=== PATIENT | female | born 1935 | race Hispanic/Latino ===

== ENCOUNTER 2017-03-31 09:22 | Inpatient (IN) | payer MEDICARE, OTHER ==
[2017-03-31] MEDS ORDERED: Sodium Chloride 0.9% 1,000 ML IV ONE (09:45)
[2017-03-31] MEDS ORDERED: Albuterol-Ipratrop 3 mg / 0.5 (3 ml) UD IH STA (09:47)
--- NOTE | 2017-03-31 09:58 | ED PDOC ---
Arrival/HPI - General Chief Complaint: Abdominal Pain Time Seen by Provider: 03/31/17 09:42 Historian: Patient - History of Present Illness Narrative History of Present Illness (Text): 03/31/17 09:58 Leah Lazo is a 81 year old female, with a past medical history of hyperlipidemia, asthma, and hypothyroidism, presents to the emergency department complaining of fever and chills since yesterday. She also complains of nausea and 1 episode of vomiting, and notes of mild abdominal discomfort prior to vomiting, which has resolved. Patient had a temperature of 101F at home. Reports she had some mild difficulty breathing on her way to emergency department, but currently denies any shortness of breath. Denies headache, dizziness, chest pain, diarrhea, urinary symptoms, or any other complaints at this time. PMD:Dr. Spicer Time/Duration: Other (yesterday ) Symptom Onset: Gradual Symptom Course: Unchanged Severity Level: Mild Activities at Onset: Light Past Medical History - Provider Review Nursing Documentation Reviewed: Yes - Infectious Disease Hx of Infectious Diseases: None - Reproductive Menopause: Yes - Pulmonary Hx Asthma: Yes - Endocrine/Metabolic Hx Hypothyroidism: Yes - Psychiatric Hx Substance Use: No - Surgical History Hx Cataract Extraction: Yes (2012) Other/Comment: niki knee replacement - Anesthesia Hx Anesthesia: Yes Hx Anesthesia Reactions: No Hx Malignant Hyperthermia: No Family/Social History - Physician Review Nursing Documentation Reviewed: Yes Family/Social History: No Known Family HX Smoking Status: Former Smoker Hx Alcohol Use: Yes Frequency of alcohol use: Socially Hx Substance Use: No Allergies/Home Meds Allergies/Adverse Reactions: Allergies No Known Allergies Allergy (Verified 03/31/17 09:33) Home Medications: Home Meds Medication Instructions Recorded Confirmed Aspirin [Ecotrin] 81 mg PO DAILY 03/31/17 03/31/17 Calcium Carbonate [Oscal] 1 cap PO BID 03/31/17 03/31/17 Fluticasone/Salmeterol 250/50 1 puff INH BID 03/31/17 03/31/17 [Advair Diskus 250/50] Pravastatin Sodium [Pravachol] 40 mg PO HS 03/31/17 03/31/17 Thyroxine 100 mcg PO DAILY 03/31/17 03/31/17 Vit A/Vit C/Vit E/Zinc/Copper 1 each PO BID 03/31/17 03/31/17 [Preservision Areds Softgel] Review of Systems - Physician Review All systems were reviewed & negative as marked: Yes - Review of Systems Constitutional: Fevers, Other (chills ) Respiratory: SOB. absent: Cough, Sputum Cardiovascular: absent: Chest Pain, Palpitations Gastrointestinal: Abdominal Pain, Nausea, Vomiting. absent: Diarrhea Neurological: Normal. absent: Headache, Dizziness Psychiatric: Normal Physical Exam Vital Signs Reviewed: Yes Vital Signs Temp Pulse Resp BP Pulse Ox 03/31/17 14:05 99.5 F 93 H 20 103/58 L 98 03/31/17 11:36 101 F H 99 H 20 106/52 L 95 03/31/17 09:23 103.7 F H 109 H 18 143/67 94 L Temperature: Febrile Blood Pressure: Normal Pulse: Tachycardic Respiratory Rate: Normal Appearance: Positive for: Well-Appearing, Non-Toxic, Comfortable, Other (obese ) Pain Distress: None Mental Status: Positive for: Alert and Oriented X 3 - Systems Exam Head: Present: Atraumatic, Normocephalic Extroacular Muscles: Present: EOMI Conjunctiva: Present: Normal Respiratory/Chest: Present: Rhonchi (right lower lung ronchi ). No: Respiratory Distress, Accessory Muscle Use Cardiovascular: Present: Regular Rate and Rhythm, Normal S1, S2. No: Murmurs Abdomen: Present: Normal Bowel Sounds. No: Tenderness, Distention, Peritoneal Signs, Rebound, Guarding Back: Present: Normal Inspection. No: CVA Tenderness Lower Extremity: Present: Normal Inspection. No: Edema Neurological: Present: GCS=15, CN II-XII Intact, Speech Normal, Motor Func Grossly Intact Skin: Present: Warm, Dry, Normal Color. No: Rashes Psychiatric: Present: Alert, Oriented x 3, Normal Insight, Normal Concentration Medical Decision Making ED Course and Treatment: 03/31/17 10:29 Impression: A 81 year old female who presents to the emergency department complaining of fever and chills since yesterday. Patient also has 1 episode of vomiting. Differential Diagnosis include but are not limited to: Sepsis r/o Pneumonia vs Abdominal Pathology Plan: -- Labs -- CT abdomen pelvis -- EKG -- Chest X-ray -- Tylenol -- Duoneb -- IV fluids -- Vanco -- Zosyn -- Blood culture -- Urine culture -- Procalcitonin -- Urinalysis -- Reassess and disposition Code Sepsis was called secondary to temperature, WBC elevation, tachycardia and elevated lactate. Patient was covered with broad spectrum antibiotics and IV fluids as ordered. Troponin is elevated and Aspirin ordered. Case was discussed with Dr. Miguel Goodwin who is admitting today for Dr. Spicer. ICU consult was ordered and Dr. Beckwith will see patient secondary to high lactic acid with troponin /renal failure in the presentation of severe sepsis. Progress Notes: 03/31/17 10:15 EKG interpreted by me: Sinus Tachycardia @ 115 bpm. Normal Shirley. Normal Interval. Pt with a lactate of 7.3, VBG pH of 7.25, Tachy @ 109 bpm and temp of 103F. Code Sepsis called. 03/31/17 13:56 Patient complaining of Chest pain, Repeat EKG unchanged. NSR at [address] elevations, nl normal axis. Patient appears comfortable. Her vital signs are stable for telemetry and lactic has improved. 14:00 I have discussed this case again with Dr. Beckwith and he see her on Telemetry floor. - Lab Interpretations Lab Results: 03/31/17 09:30 03/31/17 09:30 Lab Results 03/31/17 10:00: Urine Color Dark yellow, Urine Appearance Sl cloudy, Urine pH 5.5, Ur Specific [place] >= 1.030, Urine Protein 100 H, Urine Glucose (UA) Negative, Urine Ketones Trace H, Urine Blood Trace-intact H, Urine Nitrate Negative, Urine Bilirubin Negative, Urine Urobilinogen 0.2, Ur Leukocyte Esterase Negative, Urine RBC 0 - 2, Urine WBC 1 - 3, Ur Epithelial Cells 1 - 3, Calcium Oxalate Crystal Few, Urine Bacteria Mod 03/31/17 09:30: Sodium 140, Chloride 104, Potassium 3.9, Carbon Dioxide 21, Anion Gap 19, BUN 30 H, Creatinine 1.8 H, Est GFR ( Amer) 33, Est GFR ( Non-Af Amer) 27, Random Glucose 92, Calcium 9.4, Phosphorus 3.2, Magnesium 1.7, Total Bilirubin 1.3, AST 176 H, ALT 171 H, Alkaline Phosphatase 171 H, Troponin I 0.19 H*, Total Protein 6.9, Albumin 3.8, Globulin 3.2, Albumin/Globulin Ratio 1.2 03/31/17 09:30: pO2 32, VBG pH 7.25 L, VBG pCO2 48.0, VBG HCO3 21.0, VBG Total CO2 22.5, VBG O2 Sat (Calc) 68.5 H, VBG Base Excess -6.4 L, VBG Potassium 4.0, Sodium 138.0, Chloride 106.0, Glucose 97, Lactate 7.3 H*, FiO2 21.0, Venous Blood Potassium 4.0 03/31/17 09:30: PT 12.3 H, INR 1.14 H, APTT 31.6 H 03/31/17 09:30: WBC 14.0 H, RBC 4.99, Hgb 15.5, Hct 45.8, MCV 91.8, MCH 31.1, MCHC 33.8, RDW 13.5, Plt Count 114 L, MPV 9.8, Neutrophils % (Manual) 91 H, Band Neutrophils % 2, Lymphocytes % (Manual) 3 L, Atypical Lymphs % 1 H, Monocytes % (Manual) 3, Large Platelets Present I have reviewed the lab results: Yes - RAD Interpretation Radiology Orders: 03/31/17 09:45 CHEST PORTABLE [RAD] Stat 03/31/17 10:26 ABD & PELVIS W/O PO OR IV CONT [CT] Stat Proof Machine Operator: ED Physician - Medication Orders Current Medication Orders: Discontinued Medications Acetaminophen (Tylenol 325mg Tab) 975 mg PO STAT STA Stop: 03/31/17 10:16 Last Admin: 03/31/17 10:20 Dose: 975 mg Albuterol/Ipratropium (Duoneb 3 Mg/0.5 Mg (3 Ml) Ud) 3 ml IH STAT STA Stop: 03/31/17 09:48 Last Admin: 03/31/17 10:00 Dose: 3 ml Aspirin (Aspirin) 325 mg PO STAT STA Stop: 03/31/17 10:59 Last Admin: 03/31/17 11:39 Dose: 325 mg Sodium Chloride (Sodium Chloride 0.9%) 1,000 mls @ 2,000 mls/hr IV .Q30M ONE Stop: 03/31/17 10:14 Last Admin: 03/31/17 10:14 Dose: 2,000 mls/hr Sodium Chloride (Sodium Chloride 0.9%) 1,000 mls @ 999 mls/hr IV .Q1H1M STA Stop: 03/31/17 11:16 Last Admin: 03/31/17 10:40 Dose: 999 mls/hr Sodium Chloride (Sodium Chloride 0.9%) 1,000 mls @ 999 mls/hr IV .Q1H1M STA Stop: 03/31/17 11:16 Last Admin: 03/31/17 10:24 Dose: 999 mls/hr Vancomycin HCl (Vancomycin 1gm) 1 gm in 250 mls @ 167 mls/hr IVPB STAT STA PRN Reason: Protocol Stop: 03/31/17 11:49 Last Admin: 03/31/17 11:38 Dose: 167 mls/hr Piperacillin Sod/Tazobactam Sod (Zosyn 4.5 Gm In Ns 100ml) 4.5 gm in 100 mls @ 200 mls/hr IVPB STAT STA PRN Reason: Protocol Stop: 03/31/17 10:49 Last Admin: 03/31/17 10:26 Dose: 200 mls/hr - Scribe Statement The provider has reviewed the documentation as recorded by the Lubna Santiago Provider Attestation: All medical record entries made by the Lubna were at my direction and personally dictated by me. I have reviewed the chart and agree that the record accurately reflects my personal performance of the history, physical exam, medical decision making, and the department course for this patient. I have also personally directed, reviewed, and agree with the discharge instructions and disposition. Disposition/Present on Arrival - Present on Arrival Any Indicators Present on Arrival: No History of DVT/PE: No History of Uncontrolled Diabetes: No Urinary Catheter: No History of Decub. Ulcer: No History Surgical Site Infection Following: None - Disposition Have Diagnosis and Disposition been Completed?: Yes Diagnosis: Sepsis, Diverticulitis Disposition: HOSPITALIZED Disposition Time: 11:40 Patient Plan: Admission, Telemetry Condition: FAIR
[2017-03-31 10:05] LABS: VENOUS BLOOD GAS BASE EXCESS -6.4 mmol/L (0.0-2.0); VENOUS BLOOD PH 7.25 (7.32-7.43)
[2017-03-31 10:15] LABS: HEMATOCRIT 45.8 % (36.0-48.0); MEAN CELL VOLUME 91.8 fL (80.0-105.0); MEAN CORPUSCULAR HEMOGLOBIN 31.1 pg (25.0-35.0); MEAN CORPUSCULAR HGB CONC 33.8 g/dl (31.0-37.0); MEAN PLATELET VOLUME 9.8 fl (7.0-11.0); PLATELET COUNT 114 [, 10^3/uL] (120.0-450.0); RED CELL DISTRIBUTION WIDTH 13.5 % (11.5-14.5)
[2017-03-31 10:15] LABS: PH,URINE 5.5 (4.7-8.0); URINE BILIRUBIN NEGATIVE (NEGATIVE); URINE BLOOD TRACE-INTACT (NEGATIVE); URINE GLUCOSE (UA) NEGATIVE (NEGATIVE); URINE KETONE TRACE mg/dL (NEGATIVE); URINE LEUKOCYTE ESTERASE NEGATIVE Leu/uL (NEGATIVE); URINE PROTEIN 100 mg/dL (<30 mg/dL); URINE UROBILINOGEN 0.2 E.U./dL (<1 E.U./dL)
[2017-03-31] MEDS ORDERED: Sodium Chloride 0.9% 1,000 ML IV STA ×2 (10:16)
[2017-03-31 10:17] LABS: ADD MANUAL DIFF? YES; ALB/GLOB RATIO 1.2 (1.1-1.8); BILIRUBIN,TOTAL 1.3 mg/dL (0.2-1.3); CALCIUM 9.4 mg/dL (8.4-10.5); MAGNESIUM 1.7 mg/dL (1.7-2.2); PHOSPHOROUS 3.2 mg/dL (2.5-4.5); POTASSIUM 3.9 mmol/L (3.6-5.0); TOTAL PROTEIN 6.9 g/dL (5.8-8.3)
[2017-03-31 10:18] LABS: URINE APPEARANCE SL CLOUDY (CLEAR); URINE COLOR DARK YELLOW (YELLOW)
[2017-03-31] MEDS ORDERED: Vancomycin 1gm in NS 250ml 1 GM/250 ML BAG IVPB STA (10:20)
[2017-03-31] MEDS ORDERED: Piperacill/Tazo 4.5gm in NS 4.5 GM/100 ML BAG IVPB STA (10:20)
[2017-03-31 10:27] LABS: INR 1.14 (0.93-1.08); PARTIAL THROMBOPLASTIN TIME 31.6 Seconds (23.7-30.8)
[2017-03-31 10:29] LABS: URINE BACTERIA MOD (NEG); URINE CALCIUM OXALATE CRYSTALS FEW /hpf; URINE RBC 0 - 2 /hpf (0-2)
[2017-03-31 10:43] LABS: ATYPICAL LYMPHOCYTE 1 % (0.0-0.0); BAND 2 % (0-2); LARGE PLATELETS PRESENT; NEUTROPHIL 91 % (50.0-70.0)
[2017-03-31 10:56] LABS: TROPONIN I 0.19 ng/mL
--- NOTE | 2017-03-31 11:30 | CT ---
PROCEDURE: CT Abdomen and pelvis without oral or intravenous contrast material 03/31/2017. HISTORY: back pain r/o kidney stone COMPARISON: None. TECHNIQUE: Contiguous axial images of the abdomen and pelvis performed without oral or intravenous contrast material. Coronal and Sagittal reformats generated. Radiation dose: Total exam DLP = 1175.77 mGy-cm. This CT exam was performed using one or more of the following dose reduction techniques: Automated exposure control, adjustment of the mA and/or kV according to patient size, and/or use of iterative reconstruction technique. FINDINGS: LOWER THORAX: Small to medium size hiatal hernia. Heart size within range of normal. Mild scarring/atelectasis both lung bases right greater than left, of with changes also seen in the lingular region. No effusion. No evidence of basilar pneumothorax. LIVER: Liver is mildly enlarged measuring nearly 20 cm in CC dimension. No obvious hepatic mass or collection. GALLBLADDER AND BILE DUCTS: Multiple intraluminal gallbladder calculi. PANCREAS: The pancreas is slightly atrophic and fatty replaced. SPLEEN: Spleen exhibits normal size and attenuation pattern ADRENALS: No adrenal lesions. KIDNEYS AND URETERS: Large exophytic cyst arising from the anterior mid and lower pole left kidney measuring approximately 8.3 cc x 7.4t x 6.2 ap cm. There may also be a smaller left parapelvic cyst. Infiltration changes seen in the perinephric fat left greater than right. No evidence of nephrolithiasis or hydronephrosis. BLADDER: Urinary bladder is incompletely distended which may account for thick-walled appearance. Possibility of a cystitis not completely excluded. REPRODUCTIVE: Uterus appears grossly unremarkable APPENDIX: The appendix is not seen with certainty however no inflammatory changes right lower quadrant of the abdomen. BOWEL: The evaluation of the bowel is limited due to the lack of oral contrast. Stomach is incompletely distended. Visualized loops of small bowel exhibit normal contour and caliber. No evidence of acute mechanical small bowel obstruction. . . Multiple colonic diverticula are seen the bulk of which arise from the sigmoid and distal descending colon. . There are also some vague infiltration changes in the adjacent mesentery anterior and adjacent to the LL mid to lower sigmoid colon. The possibility of a mild acute early diverticulitis must be excluded. PERITONEUM: Unremarkable. No fluid collection. No free air. LYMPH NODES: Unremarkable. No enlarged lymph nodes. VASCULATURE: Unremarkable. No aortic aneurysm. BONES: No acute compression fractures of the visualized lower thoracic or lumbar spine. Multilevel degenerative spondylosis. OTHER FINDINGS: None. IMPRESSION: Large left renal cyst with possible small adjacent left parapelvic renal cyst. There also infiltration changes in the perinephric fat bilaterally left greater than right. No evidence of nephrolithiasis or hydronephrosis. Urinary bladder is incompletely distended which may account for slight thick-walled appearance. Possibility of cystitis not excluded. . Cholelithiasis. Mild hepatomegaly. Diverticulosis most notably affecting the sigmoid colon though diverticula are scattered throughout the colon. There are also some vague infiltration changes in the adjacent mesentery anteriorly and adjacent to the mid to lower sigmoid colon. The possibility of a mild acute early diverticulitis must be excluded. Small to medium size hiatal hernia. See above discussion for additional details.
[2017-03-31 12:21] LABS: VENOUS BLOOD GAS BASE EXCESS 6.8 mmol/L (0.0-2.0); VENOUS BLOOD PH 7.32 (7.32-7.43)
--- NOTE | 2017-03-31 14:09 | RAD ---
HISTORY: Sepsis Patient COMPARISON: No prior. FINDINGS: LUNGS: Mild hyperinflation. Rule out chronic changes of COPD and or emphysema. There also appears to be some minor left basilar atelectasis. PLEURA: No significant pleural effusion identified, no pneumothorax apparent. CARDIOVASCULAR: Heart size is upper limits of normal. OSSEOUS STRUCTURES: Mild degenerative changes of both shoulder girdles. VISUALIZED UPPER ABDOMEN: Normal. OTHER FINDINGS: None. IMPRESSION: Hyperinflation; rule out chronic changes of COPD and or emphysema. Mild left basilar atelectasis.
[2017-03-31 15:17] VITALS: BMI 34.9
[2017-03-31] MEDS ORDERED: THYROXINE PO SCH (16:00)
[2017-03-31] MEDS ORDERED: Levothyroxine 100 MCG TAB PO SCH (16:00)
--- NOTE | 2017-03-31 16:40 | PCM.SEPTIC ---
Sepsis Progress Note - Reassessment Type Date of Evaluation: 03/31/17 (with Dr. Marcell Bucio- PGY 1) Time of Evaluation: 16:15 Reassessment Type: Non-invasive reassessment - Non Invasive Reassessment Were the most recent vital sign reviewed: Yes Vital Sign (Latest): Temp Pulse Resp BP Pulse Ox 99.5 F 93 H 18 103/58 L 98 03/31/17 15:11 03/31/17 15:11 03/31/17 15:11 03/31/17 15:11 03/31/17 14:05 Cardiovascular: Yes: Regular Rate, Rhythm Respiratory: Yes: Normal Breath Sounds. No: Accessory Muscle Use, Crackles, Rales, Respiratory Distress Capillary Refill: Delayed (3 to 4 seconds) Pulses: Normal Radial, Normal Dorsalis Pedis, Decreased Posterior Tibialis Skin: Normal Color, Warm, Dry
[2017-03-31] MEDS: Sodium Chloride 0.9% 1,000 ML IV SCH (17:44)
[2017-03-31] MEDS ORDERED: Fluticasone-Salmeterol 250-50mcg Diskus INH SCH (18:00)
[2017-03-31] MEDS: Budesonide 0.5 mg/2 ml Inhal Susp UD IH SCH (19:51)
[2017-03-31] MEDS: Arformoterol 15 mcg/2 ml Inh Sol IH SCH (19:51)
[2017-03-31] MEDS: Meropenem 1g/NS 100mL IVPB 1 GM/100 ML PIGGYBACK IVPB SCH (21:35)
--- NOTE | 2017-03-31 22:04 | CON ---
DATE: 03/31/2017 This patient was seen and evaluated earlier today. This 81-year-old patient has noticed some abdominal discomfort on . She had noticed chills yesterday. Also, has some weakness and dizziness. The patient also complaining of some abdominal discomfort, episodes of vomiting. The patient was brought to the Emergency Room. No similar episode before. Her other past medical history is positive for hypothyroidism, dyslipidemia. PAST SURGICAL HISTORY: Significant for bilateral knee replacement and also cataract surgery. SOCIAL HISTORY: An ex-smoker. Occasional social alcohol. REVIEW OF SYSTEMS: Positive as above. All other systems reviewed and negative. PHYSICAL EXAMINATION: GENERAL: The patient is lying on the bed, not in acute distress. VITAL SIGNS: Temperature is 98.8, blood pressure is 105/49, pulse 86, respirations is 18, O2 saturation is 98%. The patient's T-max was 100.3 in the ER. HEENT: Atraumatic, anicteric. NECK: Supple. HEART: S1, S2 heard. LUNGS: Bilateral air entry present. ABDOMEN: Soft. There is no mass palpable. Bowel sounds present. EXTREMITIES: No edema. No cyanosis. NEUROLOGIC: Alert, oriented. LABORATORY DATA: WBC 14, hemoglobin 15.5, hematocrit 45.8, platelets 114. Alkaline phosphatase is 171, ALT 171, AST is 176. Troponin is also elevated to 1.9, procalcitonin is high at 48.91, BUN 30, creatinine is 1.8. Urinalysis is negative, except as stated above. CAT scan of the abdomen and pelvis was reviewed and had small renal cyst and diverticulosis, mild questionable infiltrate around the diverticular area, possible diverticulitis, also has gallstones, multiple. IMPRESSION: This 81-year-old patient is admitted with sepsis, T-max of 103. The patient has episodes of vomiting and some mild abdominal discomfort. CAT scan shows some thickening of the sigmoid colon diverticular area with a questionable pericolonic infiltration suggestive of possible diverticulitis. The patient also has gallstones which increase the LFTs. The differential diagnosis for sepsis should include acute diverticulitis, cholecystitis, cholangitis also considered. Would recommend at this point: 1. Clear liquid diet. 2. Followup of the cultures. 3. IV antibiotics. 4. Followup of the LFTs. The patient's other comorbidities include acute kidney injury, thrombocytopenia. The patient is on IV hydration and close monitoring. We will continue to closely follow up her care. Thank you and suggest further recommendation based on the clinical course. Liss Alexander MD cc: [id number] TT: 03/31/2017 22:04:33 Confirmation # [id number] Dictation # [id number] [email or web address] [email or web address]
--- NOTE | 2017-03-31 22:07 | CARD ---
APPROVED REPORT EKG Measurement Heart [id number] CO 136P33 [id number] <Conclusion> Poor data quality, interpretation may be adversely affected Sinus tachycardia Otherwise normal ECG
[2017-04-01] MEDS: Sodium Chloride 0.9% 1,000 ML IV SCH ×4 (02:17→22:12)
[2017-04-01] MEDS: Meropenem 1g/NS 100mL IVPB 1 GM/100 ML PIGGYBACK IVPB SCH ×3 (05:03→21:18)
[2017-04-01 07:28] LABS: HEMATOCRIT 40.2 % (36.0-48.0); MEAN CELL VOLUME 90.3 fL (80.0-105.0); MEAN CORPUSCULAR HEMOGLOBIN 30.6 pg (25.0-35.0); MEAN CORPUSCULAR HGB CONC 33.8 g/dl (31.0-37.0); MEAN PLATELET VOLUME 9.5 fl (7.0-11.0); RED CELL DISTRIBUTION WIDTH 14.1 % (11.5-14.5); WHITE BLOOD COUNT 24.2 [, 10^3/ul] (4.5-11.0)
[2017-04-01 07:39] LABS: BILIRUBIN,TOTAL 0.9 mg/dL (0.2-1.3); CALCIUM 8.2 mg/dL (8.4-10.5); POTASSIUM 3.6 mmol/L (3.6-5.0); TOTAL PROTEIN 5.9 g/dL (5.8-8.3)
[2017-04-01] MEDS: Arformoterol 15 mcg/2 ml Inh Sol IH SCH ×2 (08:11→20:15)
[2017-04-01] MEDS: Budesonide 0.5 mg/2 ml Inhal Susp UD IH SCH ×2 (08:11→20:15)
--- NOTE | 2017-04-01 09:17 | CARD ---
APPROVED REPORT EKG Measurement Heart [id number] WI [id number] [id number] <Conclusion> Normal sinus rhythm Normal ECG
--- NOTE | 2017-04-01 10:16 | HP ---
HISTORY OF PRESENT ILLNESS: An 81-year-old white female with history of asthma and history of bilate ral knee replacements, mild hypertension. The patient developed high fever, chills, some shortness o f breath, and one episode of vomiting - fell to the floor, was unable to get up, was brought by the jihan navarro to the Emergency Room with elevated temperature up to 103. White count dropped and went from 1 4,000-24,000. The patient was admitted. She had a CT of the abdomen and pelvis, which showed some gallstones and possible cholecystitis. She also had elevated liver enzymes, mostly transaminases. The patient also had some slightly productiv e cough without hemoptysis. The patient denied any back pain, dysuria, hematuria, diarrhea - claimed one episode of vomiting, but no other localized abdominal pain. SOCIAL HISTORY: Negative tobacco and alcohol, negative for IV drug abuse, or prescription drug abuse . PAST SURGICAL HISTORY: Only positive for bilateral knee replacements. PHYSICAL EXAMINATION: GENERAL: Shows a well-developed, slightly obese white female in no apparent distress the following m orning. HEENT: Essentially within normal limits. HEART: Regular sinus rhythm. No S3. No murmurs. CHEST: Clear to auscultation and percussion. ABDOMEN: Benign, obese. Bowel sounds are normoactive. There is no rebound or guarding. There is n o Dejesus's sign, and there is no tenderness on deep palpation. VITAL SIGNS: Temperature is 98.3. Blood pressure is 135/63. LABORATORY DATA: The white count today is 24,200 with a left shift. Procalcitonin is at 48. PLAN: Is to have an MRCP, CT of the chest. Continue IV antibiotics. Surgical consultation and poss ible laparoscopic cholecystectomy once the patient is afebrile. Rafael Spicer MD cc: [id number] TT: 04/01/2017 10:15:17 teagan
[2017-04-01] MEDS ORDERED: cefTRIAXone 1 gm 1 GM/100 ML BAG IVPB SCH (10:30)
--- NOTE | 2017-04-01 11:18 | CT ---
PROCEDURE: CT Chest without contrast HISTORY: cough,sepsis COMPARISON: None. TECHNIQUE: Contiguous axial images were obtained through the chest without intravenous contrast enhancement. Sagittal and coronal reconstructions were performed. Radiation dose (DLP): 742.37 mGy-cm. This CT exam was performed using one or more of the following dose reduction techniques: Automated exposure control, adjustment of the mA and/or kV according to patient size, and/or use of iterative reconstruction technique. FINDINGS: LUNGS: Minor atelectasis/scarring changes both lung bases including the lingular region. No evidence on the parenchymal masses or significant nodules identified. . There appears to be small right and trace left-sided effusion MEDIASTINUM: Unremarkable thoracic aorta. No aneurysm. N heart size is borderline/mildly enlarged. . Main pulmonary artery unremarkable. No vascular congestion. No lymphadenopathy. PLEURA: . No pneumothorax. BONES: No fracture. No destructive lesion. Minor multilevel degenerative UPPER ABDOMEN: On cholelithiasis. OTHER FINDINGS: Small hiatal hernia with slight wall thickening of the distal esophagus that could be due to protrusion gastric mucosa. Esophagitis or other intrinsic/ invasive wall lesion not excluded. IMPRESSION: Spondylosis of the thoracic spine mild bibasilar atelectasis. Small right and trace left-sided effusion. Cholelithiasis.
--- NOTE | 2017-04-01 11:39 | CP.PCM.CON ---
History of Present Illness - History of Present Illness History of Present Illness: Dr. Nabeel Page PGY1 Surgery Consult Note for Dr. Salcedo This patient is a 81yo F w/ a PMHx of mild persistent Asthma, Hyperlipidemia, and Hypothyroidism who originally presented to the emergency department 3 days ago for shortness of breath and abdominal pain. She could not localize the pain or qualify the type/intensity of the pain. The patient was reluctant to come into the hospital, but at the urging of her daughter she came in. She admitted to shortness of breath in conjunction with the abdominal pain and generalized weakness, and 2 episodes of vomiting before she arrived in the ER. She denied GILL , photophobia, Neck pain, chest pain, N/D, dysuria/freq/urg, or lower extremity swelling/pain. PMhx: Mild persistent Asthma, Hyperlipidemia, and Hypothyroidism PShx: B/l knee replacements; in 2014 and 2016 Allergies: NKDA Home Meds: Levothyroxine, Advair, Baby Aspirin, Simvastatin Preventative Medicine: Patient has NEVER had a colonoscopy or seen a [employer] (no known pap smears). Imaging: CT scan showed diffuse diverticulosis in the sigmoid colon, with possible early Diverticulitis. Also noted as Cholelithiasis with very impressive golfball sized stone. Chest CT and X-RAY show small left sided atelectesis and effusion. Abdominal US and MRCP are pending from GI. EKG showed NSR with no St-T segment changes. Medications currently on: Brovana, Baby Aspirin, Pulmicort, IV Flagyl 500 Q8, Synthroid 100mcg, Meropenem 1g Q8, Ceftriaxone 1g daily On presentation the patient was found to have a procalcitonin of 48.91, Lactate of 7.3 which has downtrended, ARI 1.8 to 1.4, and a WBC elevation of 14 now 24, and a troponin of .19. Review of Systems - Constitutional Constitutional: Anorexia, Chills - EENT Ears: absent: Decreased Hearing, Ear Discharge Nose/Mouth/Throat: absent: Dysphagia, Halitosis, Hoarsness, Mouth Pain - Breasts Breasts: absent: Change in Shape - Cardiovascular Cardiovascular: Diaphoresis. absent: Chest Pain - Respiratory Respiratory: Cough, Dyspnea on Exertion. absent: Hemoptysis, Pain on Inspiration, Chest Congestion, Change in Mucous Color - Gastrointestinal Gastrointestinal: Abdominal Pain, Nausea, Vomiting. absent: Belching, Bloating , Diarrhea, Dyspepsia, Dysphagia - Genitourinary Genitourinary: absent: Change in Urinary Stream, Difficulty Urinating, Pyuria - Musculoskeletal Musculoskeletal: absent: Abnormal Gait, Atrophy, Back Pain - Neurological Neurological: absent: Abnormal Gait, Abnormal Hearing Past Patient History - Infectious Disease Hx of Infectious Diseases: None - Past Social History Smoking Status: Former Smoker - PULMONARY Hx Asthma: Yes - ENDOCRINE/METABOLIC Hx Hypothyroidism: Yes - MUSCULOSKELETAL/RHEUMATOLOGICAL Hx Falls: No - PSYCHIATRIC Hx Substance Use: No - SURGICAL HISTORY Other/Comment: niki knee replacement - ANESTHESIA Hx Anesthesia: Yes Hx Anesthesia Reactions: No Hx Malignant Hyperthermia: No Meds Allergies/Adverse Reactions: Allergies Allergy/AdvReac Type Severity Reaction Status Date / Time No Known Allergies Allergy Verified 03/31/17 09:33 - Medications Medications: Current Medications Arformoterol Tartrate (Brovana) 15 mcg IH [id number] [facility] Last Admin: 04/01/17 08:11 Dose: 15 mcg Aspirin (Ecotrin) 81 mg PO DAILY [facility] Last Admin: 04/01/17 09:00 Dose: 81 mg Budesonide (Pulmicort Respules) 0.5 mg IH [id number] [facility] Last Admin: 04/01/17 08:11 Dose: 0.5 mg Home Med (Home Med) 0 unit PO BID [facility] Sodium Chloride (Sodium Chloride 0.9%) 1,000 mls @ 100 mls/hr IV .Q10H [facility] Last Admin: 04/01/17 02:17 Dose: 100 mls/hr Meropenem 1g/NS 100mL IVPB (Meropenem 1g/Ns 100ml Ivpb) 1 gm in 100 mls @ 100 mls/hr IVPB Q8 [facility] PRN Reason: Protocol Stop: 04/09/17 22:01 Last Admin: 04/01/17 05:03 Dose: 100 mls/hr Ceftriaxone Sodium (Rocephin 1 Gram Ivpb) 1 gm in 100 mls @ 100 mls/hr IVPB DAILY [facility] PRN Reason: Protocol Last Admin: 04/01/17 10:54 Dose: 100 mls/hr Metronidazole (Flagyl) 500 mg in 100 mls @ 100 mls/hr IVPB Q8 [facility] PRN Reason: Protocol Levothyroxine Sodium (Synthroid) 100 mcg PO DAILY [facility] Physical Exam - Head Exam Head Exam: ATRAUMATIC, NORMAL INSPECTION - Eye Exam Eye Exam: EOMI - ENT Exam ENT Exam: Mucous Membranes Moist - Neck Exam Neck exam: Positive for: Full Rom. Negative for: Lymphadenopathy - Respiratory Exam Respiratory Exam: Clear to Auscultation Bilateral, NORMAL BREATHING PATTERN. absent: Rales, Rhonchi, Wheezes - Cardiovascular Exam Cardiovascular Exam: REGULAR RHYTHM, +S1, +S2 - GI/Abdominal Exam GI & Abdominal Exam: Normal Bowel Sounds, Soft. absent: Bruit, Diminished Bowel Sounds, Distended, Firm, Guarding, Hernia, Hyperactive Bowel Sounds, Organomegaly, Pulsatile Mass, Rebound, Rigid, Tenderness - Rectal Exam Rectal Exam: Deferred - Extremities Exam Extremities exam: Positive for: full ROM, normal inspection. Negative for: calf tenderness - Back Exam Back exam: NORMAL INSPECTION. absent: CVA tenderness (L), CVA tenderness (R), paraspinal tenderness - Neurological Exam Neurological exam: Alert, CN II-XII Intact, Oriented x3 - Psychiatric Exam Psychiatric exam: Normal Affect, Normal Mood - Skin Skin Exam: Warm Results - Vital Signs Recent Vital Signs: Last Vital Signs Temp 98.1 F 04/01/17 05:29 Pulse 70 04/01/17 05:29 Resp 22 04/01/17 05:29 BP 102/44 L 04/01/17 05:29 Pulse Ox 92 L 04/01/17 05:29 - Labs Result Diagrams: 04/01/17 07:00 04/01/17 07:00 Labs: Laboratory Results - last 24 hr 03/31/17 04/01/17 04/01/17 12:00 07:00 07:00 WBC 24.2 H D RBC 4.45 Hgb 13.6 Hct 40.2 MCV 90.3 MCH 30.6 MCHC 33.8 RDW 14.1 Plt Count 93 L MPV 9.5 pO2 127 H VBG pH 7.32 VBG pCO2 36.0 L VBG HCO3 18.5 L VBG Total CO2 19.6 L VBG O2 Sat (Calc) 100.1 H VBG Base Excess 6.8 H Sodium 138.0 140 Chloride 111.0 H 110 H Glucose 93 Lactate 5.8 H* FiO2 21 Potassium 3.6 Carbon Dioxide 22 Anion Gap 12 BUN 32 H Creatinine 1.4 Est GFR ( Amer) 44 Est GFR (Non-Af Amer) 36 Random Glucose 70 Calcium 8.2 L Total Bilirubin 0.9 AST 69 H ALT 115 H Alkaline Phosphatase 98 Total Protein 5.9 Albumin 2.9 L Globulin 3.0 Albumin/Globulin Ratio 1.0 L Assessment & Plan - Assessment and Plan (Free Text) Assessment: This is an 81yo F who was admitted to the hospital for Sepsis 2/2 to possible diverticulitis/cholecystitis -f/u MRCP and Abdominal Ultrasound; will f/u results -AST and ALT are normalizing; bilirubin normal since admission; sepsis is resolving; kidney function improving -CT scan showed impressive golf ball sized stone in the gallbladder -Patient is tolerating diet; no more episodes of N/V, no abdominal pain; c/w serial abdominal exams -d/w Dr. Matias Page PGY1 Surgery Note
--- NOTE | 2017-04-01 12:39 | US ---
HISTORY: sepsis COMPARISON: Comparison made with CT scan abdomen pelvis 03/31/2017 TECHNIQUE: Sonographic evaluation of the abdomen. FINDINGS: LIVER: Liver is enlarged measuring approximately 19 cm in CC dimension. Cm. Increased echogenicity of the liver parenchyma suggesting fatty infiltration however other infiltrative hepatocellular disease process not excluded. . No mass. No intrahepatic bile duct dilatation. GALLBLADDER: Intraluminal gallbladder calculi present. GB wall thickening and/or edema measuring 5.4 mm. No sonographic Dejesus sign. COMMON BILE DUCT: Measures 6 mm. No stones. No dilatation. PANCREAS: Unremarkable as visualized. No mass. No ductal dilatation. RIGHT KIDNEY: Measures 10.8 x 5.0 x 5.3 cm. Normal echogenicity. No calculus, mass, or hydronephrosis. LEFT KIDNEY: Measures 12.7 x 6.0 x 5.0cm. Normal echogenicity. No calculus or hydronephrosis. Large cyst arising from mid/ lower pole left kidney measuring 8.6 x 6.9 x 8.4 cm SPLEEN: Normal in size and contour. No mass. AORTA: No aneurysmal dilatation. IVC: Unremarkable. OTHER FINDINGS: None. IMPRESSION: Hepatomegaly. Increased hepatic echotexture consistent with fatty infiltration however other infiltrative hepatocellular disease process not excluded. . Large left renal cyst.
--- NOTE | 2017-04-01 13:55 | PN ---
DATE: 04/01/2017 Seen and examined at the bedside earlier today. The patient's daughter is at the bedside. The patie nt does report some improvement of pain. No nausea, vomiting, shortness of breath or chest pain. VITAL SIGNS: Temperature is 98.1, blood pressure 102/44, pulse rate 70, respirations 22. LABORATORY DATA: WBC is 24.2, this went up. H and H is 13.6 and 40.2. Platelets are 93. Sodium is 140, K is 3.6, BUN 32, creatinine is 1.4, total bilirubin 0.9, AST 69, ALT 115, alkaline phosphatase is 98. His AST, LFTs are improved compared to yesterday's. The patient went for a chest CT and thi s showed a small right and trace left-sided effusion, small hiatal hernia with slight wall thickening of the distal esophagus, could be due to protrusion of gastric mucosa, esophagitis or other intrinsi c/____ lesion not excluded. PHYSICAL EXAMINATION: HEENT: Sclera is anicteric. NECK: Supple. CARDIAC: S1, S2. LUNGS: Sounds with decreased breath sounds but good air entry, no rales or wheeze. ABDOMEN: With bowel sounds, soft, not tender on palpation. No rebound or guarding. ASSESSMENT: An 81-year-old female admitted with sepsis. She has increasing leukocytosis this mornin g. Had episode of vomiting and mild abdominal discomfort. She did have no abdominal pain. The abdo jeremy pain is improved today. She did have a CAT scan showing thickening of the sigmoid colon, quest ionable diverticulitis. She is noted to have elevated LFTs, which have improved today and a history of gallstones. Rule out cholecystitis, cholangitis. Other comorbidities are dyslipidemia and hypoth yroidism. PLAN: Obtain a HIDA scan and MRCP. We also spoke to Dr. Salcedo for surgical consult. The patient is being followed by ID, is IV antibiotics. We will start patient on IV antibiotics of Flagyl and ce ftriaxone. Continue aspirin. The patient is also on clear liquids. Monitor LFTs. Also on IV flui ds for hydration. Will continue to follow closely. The patient was seen and case discussed with Dr. Alexander as per ID and surgery. Josselyn ALMAGUER cc: [phone] TT: 04/01/2017 13:54:01 Confirmation # [id number] Dictation # [id number] sn
[2017-04-01] MEDS ORDERED: metroNIDAZOLE IV 500 mg/100 ml 500 MG/100 ML BAG IVPB SCH (14:00)
[2017-04-01] MEDS: [UNRECOGNIZED DRUG - OTHER] PO SCH (17:31)
--- NOTE | 2017-04-01 19:09 | CON ---
DATE: 04/01/2017 The patient was seen earlier today in room 267, bed 2. CHIEF COMPLAINT: Fever times several days. HISTORY OF PRESENT ILLNESS: This is an 81-year-old female admitted through the Emergency Room yester day with a past medical history of asthma, hypothyroidism, hyperlipidemia, complaining of fevers and chills and vomiting and abdominal discomfort and had a temperature of 101 at home associated with chi lls. REVIEW OF SYSTEMS: There has been no dysuria, no frequency. No headaches or blurred vision. No cou gh. PAST MEDICAL HISTORY: Significant for hypothyroidism, asthma and hyperlipidemia. PAST SURGICAL HISTORY: Significant for cataract surgery and bilateral knee replacement. ALLERGIES: The patient has no known allergies to antibiotics. MEDICATIONS AT HOME: Include Os-Carl, aspirin, thyroxine, statin and an inhaler. PHYSICAL EXAMINATION: GENERAL: The patient is in bed with a temperature of 97, T-max is 103.7, blood pressure is 140/70, r espiratory rate of 22 and heart rate was up to 109. HEENT: Unremarkable. NECK: Supple. LUNGS: Have decreased breath sounds. HEART: Normal S1, S2. ABDOMEN: Soft. There is mild tenderness in the right upper quadrant. No rebound, no guarding, no m asses. LABORATORY EXAMINATION: Reveals a white count of 24,000. The patient does have 91% neutrophils. He moglobin of 15, platelets of 148, it is down to 93. Coagulation is noted. Chemistries are noted. T he patient's creatinine was 1.8; it is down to 1.4. LFTs are elevated with alkaline phosphatase elev ations. Troponin is mildly elevated and procalcitonin is 48. Urinalysis is unremarkable. MICROBIOLOGY: Urine cultures are negative. The blood cultures are gram-negative candy. The patient had a CAT scan of the chest on which minimal atelectasis is noted. No evidence of parenc hymal mass. The patient had a CAT scan of the abdomen and pelvis: Multiple intraluminal gallbladder and stones. Josselyn Delarosa' note is reviewed. Dr. Spicer's history and physical examination is reviewed. Dr. Alfredo Page's consultation is reviewed. The patient had an MRCP; results are pending. The patient sanchez d a HIDA scan; results are pending. ASSESSMENT AND PLAN: This is an 81-year-old female with asthma and hypothyroidism and hyperlipidemia , admitted with severe sepsis with gram-negative candy bacteremia with acute kidney injury, hypoxia and thrombocytopenia. Will treat the patient with meropenem as it was started last night empirically. Check on the identification and sensitivity of the gram-negative candy, most likely biliary tree as the source of this patient's severe sepsis with gram-negative candy. Gastroenterology is on the case. Ambar valle is also on the case. Will make further recommendations upon the identification of the gram-neg ative candy in the blood. Of note is the urinalysis and urine cultures are negative. Gastrointestinal is the source. Most likely biliary tree and gallbladder disease in this patient with gram-negative candy bacteremia with severe sepsis with acute kidney injury, thrombocytopenia and hypoxia. Will follo w closely with you. The patient's daughter and sister were at the bedside and all their questions we re answered. Nabeel Killian MD cc: [phone] TT: 04/01/2017 19:08:41 Confirmation # [id number] Dictation # [id number] mn
--- NOTE | 2017-04-01 19:44 | MRI ---
EXAM: MR Abdomen Without Intravenous Contrast, MRCP Protocol CLINICAL HISTORY: 81 years old, female; Signs and symptoms; Other: Cbd; Additional info: Sepsis cholecystitis R/O cbd stone TECHNIQUE: Multiplanar magnetic resonance images of the abdomen without intravenous contrast using MRCP protocol. EXAM DATE/TIME: 04/01/2017 8:52 AM COMPARISON: Prior CT abdomen and pelvis of 03/31/2017 FINDINGS: LIMITATIONS: Exam is limited by moderate streak/motion artifact. BILE DUCTS: Best seen on image 13 of series, there is a possible stone in the distal common bile duct, measuring 4 mm. The common duct measures 7 mm in diameter, which is within normal limits for age (normal less than 8 mm in a patient of age). No evidence of significant intrahepatic biliary ductal dilatation. GALLBLADDER: Several large gallstones are seen. No evidence of pericholecystic fluid. LIVER: No acute abnormality identified. No focal lesions seen. PANCREAS: No significant pancreatic ductal dilatation. No evidence of significant peripancreatic fluid. KIDNEYS AND URETERS: 8 cm cystic lesion in the left kidney. This has a lobulated shape, but no definite internal septations or solid components. Small amount bilateral perinephric fluid, a nonspecific finding. IMPRESSION: - Possible small 4 mm stone in the distal common bile duct. There is no evidence of significant associated biliary ductal dilatation. - Multiple gallstones. No evidence of cholecystitis. - See above for remaining findings.
--- NOTE | 2017-04-01 23:19 | PN ---
DATE: 04/01/2017 ADDENDUM: This is an addendum to the GI progress report dictated by Josselyn Delarosa NP. This patient was seen and evaluated earlier. The patient's family at bedside. The patient has MRCP done, the results pending. ABDOMEN: Soft. The patient does have mild tenderness to deep palpation in the right upper quadrant area and also left lower quadrant area. No rebound or guarding. Discussed with baylee Aj for an MRCP to further evaluate. PLAN: continue the antibiotics and followup of the culture, followup of the MRCP. Thank you very much for allowing us to participate in the care of the patient. Liss Alexander MD cc: [phone] TT: 04/01/2017 23:19:46 Confirmation # [id number] Dictation # [id number] hi
--- NOTE | 2017-04-01 23:23 | PN ---
DATE: 04/01/2017 This is an addendum to progress note of JAMEY Reid. This patient was seen and evaluated earlier, discussed with Dr. Spicer and the family. The patient had an MRCP done, results pending. Continue the antibiotics. Abdomen soft. Mild tenderness in the right upper quadrant epigastric area and right upper quadrant and left lower quadrant area. No rebound or guarding. White cell count is evaluated at 24,000. Presently imipenem and antibiotics. Followup of the MRCP. Thank you very much for allowing us to participate in the care of the patient. Liss Alexander MD cc: [id number] TT: 04/01/2017 23:23:01 Confirmation # [id number] Dictation # [id number] MTDD
[2017-04-02] MEDS: Meropenem 1g/NS 100mL IVPB 1 GM/100 ML PIGGYBACK IVPB SCH ×3 (05:55→22:04)
[2017-04-02 07:10] LABS: ADD MANUAL DIFF? NO
[2017-04-02 07:13] LABS: BASO # 0.06 [, K/mm3] (0.0-2.0); BASO % 0.3 % (0.0-3.0); EOS # 0.3 (0.0-0.7); EOS % 1.7 % (1.5-5.0); GRAN # 15.39 (1.4-6.5); HEMATOCRIT 42.5 % (36.0-48.0); LYMPH # 0.9 (1.2-3.4); LYMPH % 5.3 % (22.0-35.0); MEAN CELL VOLUME 89.9 fL (80.0-105.0); MEAN CORPUSCULAR HEMOGLOBIN 31.1 pg (25.0-35.0); MEAN CORPUSCULAR HGB CONC 34.6 g/dl (31.0-37.0); MEAN PLATELET VOLUME 9.9 fl (7.0-11.0); MONO % 5.7 % (1.0-6.0); PLATELET COUNT 85 [, 10^3/uL] (120.0-450.0); WHITE BLOOD COUNT 17.7 [, 10^3/ul] (4.5-11.0)
[2017-04-02 07:22] LABS: INR 1.01 (0.93-1.08)
[2017-04-02 07:28] LABS: ALB/GLOB RATIO 0.9 (1.1-1.8); ALKALINE PHOSPHATASE 117 U/L (38-133); ALT/SGPT 86 U/L (7-56); AMYLASE 38 U/L (35-125); AST/SGOT 45 U/L (15-39); BILIRUBIN,TOTAL 0.7 mg/dL (0.2-1.3); BLOOD UREA NITROGEN 17 mg/dL (7-21); CALCIUM 8.5 mg/dL (8.4-10.5); CARBON DIOXIDE 23 mmol/L (21-33); CHLORIDE 110 mmol/L (98-107); GFR AFRICAN-AMERICAN > 60; GLUCOSE,RANDOM 85 mg/dL (70-110); LIPASE 33 U/L (23-300); MAGNESIUM 2.1 mg/dL (1.7-2.2); POTASSIUM 3.8 mmol/L (3.6-5.0); SODIUM 141 mmol/L (132-148); TOTAL PROTEIN 6.4 g/dL (5.8-8.3)
--- NOTE | 2017-04-02 07:35 | CP.PCM.PN ---
Subjective - Date & Time of Evaluation Date of Evaluation: 04/02/17 Time of Evaluation: 07:36 - Subjective Subjective: Dr. Nabeel Page PGY1 Surgery Note for Dr. Salcedo Patient seen and examined at bedside; denies any pain/n/v/d. comfortably sitting in bed; denies fevers/chills, GILL, CP, dysuria/freq/urg, or lower extremity pain,swelling. Objective - Vital Signs/Intake and Output Vital Signs (last 24 hours): Temp Pulse Resp BP Pulse Ox 98.4 F 104 H 20 168/88 H 92 L 04/02/17 06:00 04/02/17 06:00 04/02/17 06:00 04/02/17 06:00 04/01/17 05:29 Intake and Output: 04/02/17 04/02/17 06:59 18:59 Intake Total 2800 400 Output Total 1 Balance 2800 399 - Medications Medications: Current Medications Arformoterol Tartrate (Brovana) 15 mcg IH [id number] [facility] Last Admin: 04/01/17 20:15 Dose: 15 mcg Aspirin (Ecotrin) 81 mg PO DAILY [facility] Last Admin: 04/01/17 09:00 Dose: 81 mg Budesonide (Pulmicort Respules) 0.5 mg IH [id number] [facility] Last Admin: 04/01/17 20:15 Dose: 0.5 mg Home Med (Home Med) 0 unit PO BID [facility] Last Admin: 04/01/17 17:31 Dose: 1 unit Sodium Chloride (Sodium Chloride 0.9%) 1,000 mls @ 100 mls/hr IV .Q10H [facility] Last Admin: 04/01/17 22:12 Dose: Not Given Meropenem 1g/NS 100mL IVPB (Meropenem 1g/Ns 100ml Ivpb) 1 gm in 100 mls @ 100 mls/hr IVPB Q8 [facility] PRN Reason: Protocol Stop: 04/09/17 22:01 Last Admin: 04/02/17 05:55 Dose: 100 mls/hr Levothyroxine Sodium (Synthroid) 100 mcg PO DAILY [facility] - Labs Labs: 04/02/17 07:00 04/02/17 07:00 PT 10.9 Seconds (9.9-11.8) 04/02/17 07:00 INR 1.01 (0.93-1.08) 04/02/17 07:00 APTT 32.0 Seconds (23.7-30.8) H 04/02/17 07:00 - Head Exam Additional comments: Head Exam: ATRAUMATIC, NORMAL INSPECTION - Eye Exam Eye Exam: EOMI - ENT Exam ENT Exam: Mucous Membranes Moist - Neck Exam Neck exam: Positive for: Full Rom. Negative for: Lymphadenopathy - Respiratory Exam Respiratory Exam: Clear to Auscultation Bilateral, NORMAL BREATHING PATTERN. absent: Rales, Rhonchi, Wheezes - Cardiovascular Exam Cardiovascular Exam: REGULAR RHYTHM, +S1, +S2 - GI/Abdominal Exam GI & Abdominal Exam: Normal Bowel Sounds, Soft. absent: Bruit, Diminished Bowel Sounds, Distended, Firm, Guarding, Hernia, Hyperactive Bowel Sounds, Organomegaly, Pulsatile Mass, Rebound, Rigid, Tenderness - Rectal Exam Rectal Exam: Deferred - Extremities Exam Extremities exam: Positive for: full ROM, normal inspection. Negative for: calf tenderness - Back Exam Back exam: NORMAL INSPECTION. absent: CVA tenderness (L), CVA tenderness (R), paraspinal tenderness - Neurological Exam Neurological exam: Alert, CN II-XII Intact, Oriented x3 - Psychiatric Exam Psychiatric exam: Normal Affect, Normal Mood - Skin Skin Exam: Warm Assessment and Plan - Assessment and Plan (Free Text) Assessment: This is an 81yo F who was admitted to the hospital for Sepsis 2/2 to possible diverticulitis/cholecystitis -MRCP showed small stones, HIDA positive; will be going for possible ERCP today will f/u with GI for coordination -AST and ALT are normalizing; bilirubin normal since admission; sepsis is resolving; kidney function improving -CT scan showed impressive golf ball sized stone in the gallbladder -Patient has been NPO since midnight, but was tolerating diet before -d/w Dr. Matias Page PGY1 Surgery Note
[2017-04-02] MEDS: Arformoterol 15 mcg/2 ml Inh Sol IH SCH ×2 (08:32→19:33)
[2017-04-02] MEDS: Budesonide 0.5 mg/2 ml Inhal Susp UD IH SCH ×2 (08:32→19:34)
[2017-04-02] MEDS: [UNRECOGNIZED DRUG - OTHER] PO SCH ×2 (09:40→18:16)
[2017-04-02] MEDS: Sodium Chloride 0.9% 1,000 ML IV SCH ×3 (09:40→23:17)
[2017-04-02] MEDS: Levothyroxine 100 MCG TAB PO SCH (09:41)
--- NOTE | 2017-04-02 10:07 | CON ---
DATE: 04/02/2017 The patient is seen in the Emergency Room and in the HIDA scan. She has abdominal pain and elevated liver functions. I reviewed the note from the surgical assistant and agree. I have examined the oneal ent myself and reviewed all tests and laboratories myself. The white count is 14, up to 24. I note the troponin of 0.19. Liver functions were elevated yesterd ay and are down to 45 and 86. However, an MRCP is done showing a common duct stone. It is real and it seems to be occluded. BUN is 30, creatinine 1.8. CAT scan shows a gallbladder with a lot of ston es, no real fluid or abscess that I can see. HIDA scan is nonvisualization at all. The abdomen is soft and nontender, no prior surgery. We will plan laparoscopic cholecystectomy and/or cholangiogram and pending now ERCP with Dr. Alexander . Will place on the schedule. Maurisio Salcedo MD cc: [phone] TT: 04/02/2017 10:07:32 Confirmation # [id number] Dictation # [id number]
[2017-04-02] MEDS ORDERED: Iohexol 240 (50 ml) ONE (13:26)
--- NOTE | 2017-04-02 17:56 | CP.PCM.PN ---
Subjective - Date & Time of Evaluation Date of Evaluation: 04/02/17 Time of Evaluation: 12:15 - Subjective Subjective: Comfortable in bed, not in distress, afebrile. Objective - Vital Signs/Intake and Output Vital Signs (last 24 hours): Temp Pulse Resp BP Pulse Ox 97.9 F 68 20 124/77 97 04/02/17 16:49 04/02/17 16:49 04/02/17 16:49 04/02/17 16:49 04/02/17 16:49 Intake and Output: 04/02/17 04/02/17 06:59 18:59 Intake Total 2800 400 Output Total 301 Balance 2800 99 - Medications Medications: Current Medications Arformoterol Tartrate (Brovana) 15 mcg IH [id number] [facility] Last Admin: 04/02/17 08:32 Dose: 15 mcg Aspirin (Ecotrin) 81 mg PO DAILY [facility] Last Admin: 04/01/17 09:00 Dose: 81 mg Budesonide (Pulmicort Respules) 0.5 mg IH [id number] [facility] Last Admin: 04/02/17 08:32 Dose: 0.5 mg Heparin Sodium (Porcine) (Heparin) 5,000 units SC Q12 [facility] PRN Reason: Protocol Last Admin: 04/02/17 09:41 Dose: Not Given Home Med (Home Med) 0 unit PO BID [facility] Last Admin: 04/02/17 09:40 Dose: Not Given Sodium Chloride (Sodium Chloride 0.9%) 1,000 mls @ 100 mls/hr IV .Q10H [facility] Last Admin: 04/02/17 09:40 Dose: 100 mls/hr Meropenem 1g/NS 100mL IVPB (Meropenem 1g/Ns 100ml Ivpb) 1 gm in 100 mls @ 100 mls/hr IVPB Q8 [facility] PRN Reason: Protocol Stop: 04/09/17 22:01 Last Admin: 04/02/17 14:51 Dose: 100 mls/hr Levothyroxine Sodium (Synthroid) 100 mcg PO DAILY [facility] Last Admin: 04/02/17 09:41 Dose: Not Given - Labs Labs: 04/02/17 07:00 04/02/17 07:00 PT 10.9 Seconds (9.9-11.8) 04/02/17 07:00 INR 1.01 (0.93-1.08) 04/02/17 07:00 APTT 32.0 Seconds (23.7-30.8) H 04/02/17 07:00 - Constitutional Appears: Non-toxic, No Acute Distress - Head Exam Head Exam: NORMAL INSPECTION - Respiratory Exam Respiratory Exam: Decreased Breath Sounds - Cardiovascular Exam Cardiovascular Exam: +S1, +S2 - GI/Abdominal Exam GI & Abdominal Exam: Soft. absent: Tenderness Assessment and Plan - Assessment and Plan (Free Text) Plan: Assessment Severe sepsis with acute renal failure due to gram negative bacilli bacteremia, consider secondary to biliary tree infection dyslipidemia asthma hypothyroidism morbid obesity with BMI 40 Plan Follow up HIDA scan results; continue Meropenem day 2 pending identification and sensitivities of the gram negative bacilli in the blood; there is plan for laparoscopic cholecystectomy for the patient Will monitor clinically
--- NOTE | 2017-04-02 18:41 | PN ---
DATE: 04/02/2017 The patient is an 81-year-old white female admitted to the hospital with sepsis, elevated liver enzym es, found on MRCP to have a common bile duct stone and multiple stones in the gallbladder, thickened gallbladder wall. The patient is on IV antibiotics. Her white count was as high as 24,000, it is do wn to 17,000 today. She is afebrile. She is without nausea, vomiting, abdominal pain. She did have some mildly elevated troponins during the course of her sepsis. No EKG changes. The patient does n ot have a history of CAD. She had a normal echo done approximately 6 months ago. The patient will b e cleared by cardiology before her surgery. She will undergo an ERCP followed by a laparoscopic chol ecystectomy. PHYSICAL EXAMINATION: Unchanged. ABDOMEN: Soft. No rebound, no guarding, no Dejesus sign. The patient is afebrile. CHEST: Clear to auscultation. HEART: S1, S2, regular sinus rhythm. Rafael Spicer MD cc: [id number] TT: 04/02/2017 18:40:53 Confirmation # [id number] Dictation # [id number]
--- NOTE | 2017-04-02 22:03 | CON ---
DATE: 04/02/2017 The patient is in room 267, bed 2. REASON FOR CONSULTATION: Elevated troponin, rule out non-ST elevation myocardial infarction, sepsis, gallstones, cholecystitis. HISTORY OF PRESENT ILLNESS: An 81-year-old female admitted with a history that she had sudden onset of pain in the epigastrium and right upper quadrant and chills. The patient had a fever up to 103. The patient was brought to the Emergency Room and patient was admitted with possible cholecystitis. The patient's blood cultures positive for Gram-negative rods and CAT scan shows gallstones. On MRCP there is the possibility of a small 4 mm stone in the distal common bile duct and there was no biliary duct dilatation. The patient is known to have asthma and high cholesterol. She also has a history of bilateral knee replacements. The patient denies any exertional chest pain history. Off and on she got shortness of breath when she had asthma. The patient was recently seen by a pheresis specialist and she had a Holter monitor and echocardiogram which apparently did not show any significant abnormality; however, the patient did not have a stress test. PAST MEDICAL HISTORY: Positive for asthma, bilateral knee replacement, history of high cholesterol. PERSONAL HISTORY: She used to smoke 3 packs a day for 20 years, but has stopped about 40 years ago. Drinks only socially. MEDICATIONS: The patient's home medication included Os-Carl 1 capsule b.i.d., aspirin 81 mg daily, thyroxine 100 mcg p.o. daily, Pravachol 40 mg p.o. daily, Advair Diskus 250/85. REVIEW OF SYSTEMS: All the systems were reviewed, positive mentioned in the history, others were negative. PHYSICAL EXAMINATION: VITAL SIGNS: Blood pressure 124/77, respirations 20, pulse 68, temperature 97.9. HEENT: Head is normocephalic. Eyes: Pupils normal. Conjunctivae normal. NECK: JVP low. Carotid equal. THORAX: AP diameter normal. LUNGS: Clear. CARDIOVASCULAR: S1, S2, ejection systolic murmur grade II/, no rub. ABDOMEN: Soft, no tenderness, no organomegaly. EXTREMITIES: No clubbing, no cyanosis. LABORATORY DATA: WBC 17.7, hemoglobin 14.7, hematocrit 42.5, platelet 85. Sodium 141, potassium 3.8, BUN 17, creatinine 0.9. On admission on 04/30, BUN was 13, creatinine was 1.8, so this had shown improvement. The patient's liver enzymes: AST was on admission 176, but now is 45; ALT was 171 and now is 86, alkaline phosphatase was 171 and now it is 117. Troponin on day of admission 0.19 and today 0.20. The EKG showed regular sinus rhythm. Chest x-ray: Hyperinflation consistent with COPD, mild left basilar atelectasis. Two blood cultures showed Gram-negative rods. DIAGNOSES: Cholecystitis, Gram-negative sepsis with blood cultures positive, gallstones, common bile duct stone, asthma, hypercholesterolemia. The patient' s troponin elevation may be related to sepsis. The patient is totally asymptomatic from cardiac point of view. The patient is responding to medical treatment with antibiotics at present. She has no abdominal pain. She has been staying afebrile. We will repeat troponin in the morning and see at that time what the trend is whether it is decreasing or whether it is increasing So for there is not much difference between the 2 troponins which were already done. Although patient has done an echo 6 months ago, but now blood culture positive, so we will repeat echocardiogram to see any evidence of any vegetation, which I doubt. Will also put patient on metoprolol 25 b.i.d. We will continue to hold aspirin. We will not put on Plavix because of possibility of patient going for surgery. Further recommendation will be made depending on the blood work in the morning, looking at the trend of the troponin. In the meantime, the patient is on heparin 5000 units q. 12 hours, metoprolol 25 b.i.d., meropenem 1 gram IV q. 8 hours, IV fluid 0.9% saline 100 mL an hour, Synthroid 100 mcg p.o. daily. We will also do a TSH in the morning and will follow with you. I had a detailed discussion with the patient's daughter Vanita and told her the plan. Will follow with you. Myah Pro MD cc: [id number] TT: 04/02/2017 22:02:05 Confirmation # [id number] Dictation # [id number] [facility]
[2017-04-03 06:19] LABS: ADD MANUAL DIFF? NO
[2017-04-03 06:24] LABS: BASO # 0.07 [, K/mm3] (0.0-2.0); BASO % 0.7 % (0.0-3.0); EOS # 0.3 (0.0-0.7); GRAN # 7.96 (1.4-6.5); GRAN % 77.2 % (50.0-68.0); HEMATOCRIT 41.3 % (36.0-48.0); LYMPH # 1.1 (1.2-3.4); LYMPH % 10.3 % (22.0-35.0); MEAN CELL VOLUME 90.4 fL (80.0-105.0); MEAN CORPUSCULAR HEMOGLOBIN 31.1 pg (25.0-35.0); MEAN CORPUSCULAR HGB CONC 34.4 g/dl (31.0-37.0); MEAN PLATELET VOLUME 10.7 fl (7.0-11.0); MONO # 0.9 (0.1-0.6); MONO % 8.8 % (1.0-6.0); PLATELET COUNT 87 [, 10^3/uL] (120.0-450.0); WHITE BLOOD COUNT 10.3 [, 10^3/ul] (4.5-11.0)
[2017-04-03 06:34] LABS: ALKALINE PHOSPHATASE 105 U/L (38-133); ALT/SGPT 71 U/L (7-56); AST/SGOT 30 U/L (15-39); BILIRUBIN,DIRECT 0.4 mg/dL (0.0-0.4); BILIRUBIN,TOTAL 0.8 mg/dL (0.2-1.3); BLOOD UREA NITROGEN 12 mg/dL (7-21); CALCIUM 8.3 mg/dL (8.4-10.5); CARBON DIOXIDE 24 mmol/L (21-33); CHLORIDE 109 mmol/L (98-107); GFR AFRICAN-AMERICAN > 60; GLUCOSE,RANDOM 82 mg/dL (70-110); MAGNESIUM 2.2 mg/dL (1.7-2.2); PHOSPHOROUS 1.8 mg/dL (2.5-4.5); POTASSIUM 3.7 mmol/L (3.6-5.0); SODIUM 140 mmol/L (132-148); TOTAL PROTEIN 6.2 g/dL (5.8-8.3)
[2017-04-03] MEDS: Meropenem 1g/NS 100mL IVPB 1 GM/100 ML PIGGYBACK IVPB SCH ×3 (06:42→22:25)
[2017-04-03 06:46] LABS: TROPONIN I 0.11 ng/mL
--- NOTE | 2017-04-03 07:46 | CP.PCM.PN ---
Subjective - Date & Time of Evaluation Date of Evaluation: 04/03/17 Time of Evaluation: 07:47 - Subjective Subjective: Dr. Nabeel Page PGY1 Surgery Note for Dr. Salcedo Patient seen and examined at bedside this AM; denies any acute complaints or overnight events; denies any chest pain, fevers/chills, GILL, SOB, abdominal pain , N/V/D, dysuria/freq/urg or lower extremity pain/swelling. Objective - Vital Signs/Intake and Output Vital Signs (last 24 hours): Temp Pulse Resp BP Pulse Ox 98.7 F 89 20 134/73 95 04/03/17 06:00 04/03/17 06:00 04/03/17 06:00 04/03/17 06:00 04/03/17 06:00 Intake and Output: 04/03/17 04/03/17 06:59 18:59 Intake Total 1560 Output Total 700 Balance 860 - Medications Medications: Current Medications Arformoterol Tartrate (Brovana) 15 mcg IH [id number] [facility] Last Admin: 04/02/17 19:33 Dose: Not Given Aspirin (Ecotrin) 81 mg PO DAILY [facility] Last Admin: 04/01/17 09:00 Dose: 81 mg Budesonide (Pulmicort Respules) 0.5 mg IH [id number] [facility] Last Admin: 04/02/17 19:34 Dose: Not Given Heparin Sodium (Porcine) (Heparin) 5,000 units SC Q12 [facility] PRN Reason: Protocol Last Admin: 04/02/17 22:04 Dose: 5,000 units Home Med (Home Med) 0 unit PO BID [facility] Last Admin: 04/02/17 18:16 Dose: 1 unit Sodium Chloride (Sodium Chloride 0.9%) 1,000 mls @ 100 mls/hr IV .Q10H [facility] Last Admin: 04/02/17 23:17 Dose: 100 mls/hr Meropenem 1g/NS 100mL IVPB (Meropenem 1g/Ns 100ml Ivpb) 1 gm in 100 mls @ 100 mls/hr IVPB Q8 [facility] PRN Reason: Protocol Stop: 04/09/17 22:01 Last Admin: 04/03/17 06:42 Dose: 100 mls/hr Levothyroxine Sodium (Synthroid) 100 mcg PO DAILY [facility] Last Admin: 04/02/17 09:41 Dose: Not Given Metoprolol Tartrate (Lopressor) 25 mg PO BID [facility] Last Admin: 04/02/17 22:03 Dose: 25 mg - Labs Labs: 04/03/17 05:00 04/03/17 05:00 PT 10.9 Seconds (9.9-11.8) 04/02/17 07:00 INR 1.01 (0.93-1.08) 04/02/17 07:00 APTT 32.0 Seconds (23.7-30.8) H 04/02/17 07:00 - Constitutional Appears: Non-toxic - Head Exam Additional comments: Head Exam: ATRAUMATIC, NORMAL INSPECTION - Eye Exam Eye Exam: EOMI - ENT Exam ENT Exam: Mucous Membranes Moist - Neck Exam Neck exam: Positive for: Full Rom. Negative for: Lymphadenopathy - Respiratory Exam Respiratory Exam: Clear to Auscultation Bilateral, NORMAL BREATHING PATTERN. absent: Rales, Rhonchi, Wheezes - Cardiovascular Exam Cardiovascular Exam: REGULAR RHYTHM, +S1, +S2 - GI/Abdominal Exam GI & Abdominal Exam: Normal Bowel Sounds, Soft. absent: Bruit, Organomegaly, Pulsatile Mass, Rebound, Rigid, Tenderness - Extremities Exam Extremities exam: Positive for: full ROM, normal inspection. Negative for: calf tenderness - Back Exam Back exam: NORMAL INSPECTION. absent: CVA tenderness (L), CVA tenderness (R), paraspinal tenderness - Neurological Exam Neurological exam: Alert, CN II-XII Intact, Oriented x3 - Psychiatric Exam Psychiatric exam: Normal Affect, Normal Mood - Skin Skin Exam: Warm Assessment and Plan - Assessment and Plan (Free Text) Assessment: This is an 81yo F who was admitted to the hospital for Sepsis 2/2 to possible diverticulitis/cholecystitis -MRCP showed small stones, HIDA positive; will be going for possible ERCP today will f/u with GI for coordination -Will likely go for Choly this week -Troponin of .2 is now .11 likely from sepsis; cardio on board -AST and ALT are normalizing; bilirubin normal since admission; sepsis is resolving; kidney function improving -CT scan showed impressive golf ball sized stone in the gallbladder -Patient has been NPO since midnight, but was tolerating diet before -patient is able to ambulate and should be out of bed and walking around as tolerated -d/w Dr. Matias Page PGY1 Surgery Note
[2017-04-03] MEDS: Arformoterol 15 mcg/2 ml Inh Sol IH SCH ×3 (08:03→19:35)
[2017-04-03] MEDS: Budesonide 0.5 mg/2 ml Inhal Susp UD IH SCH ×3 (08:03→19:35)
--- NOTE | 2017-04-03 08:58 | PN ---
DATE: 04/03/2017 An 81-year-old admitted with sepsis from cholecystitis, cholelithiasis and choledocholithiasis. The patient was found on MRCP to have common bile duct stones and inflamed gallbladder wall. The patient has been on IV antibiotics. White count has been as high as 24,000; it is down to 10,000 today. Rios walker is afebrile for several days. ERCP with sphincterotomy was canceled yesterday due to elevated trop onins x 2 and long discussion with anesthesiology who refused to do the case because they wanted card iology clearance. The patient was seen in consultation with Dr. Pro who agreed that the elevated troponins are most likely secondary to sepsis and cleared the patient for ERCP. The case will be dis cussed with Dr. Alexander to reschedule her ERCP followed by a cholecystectomy. PHYSICAL EXAMINATION: VITAL SIGNS: The patient is afebrile. Vital signs are stable. ABDOMEN: She has no further tenderness. Her abdomen is soft. There is no Dejesus's sign. GENERAL: She is nonjaundiced. White count is down to 10,000. Blood pressure is stable. Her TSH is slightly elevated at 7.87. She has been on Synthroid for many years; she will be restarted. Plan is to start alimentation if ERCP is not scheduled till tomorrow. If they can do the ERCP today, we will have it done today with sphin cterotomy followed by a laparoscopic cholecystectomy. Rafael Spicer MD cc: [id number] TT: 04/03/2017 08:58:26 Confirmation # [id number] Dictation # [id number] mn
[2017-04-03] MEDS: [UNRECOGNIZED DRUG - OTHER] PO SCH ×2 (09:50→18:34)
[2017-04-03] MEDS: Levothyroxine 100 MCG TAB PO SCH (09:52)
--- NOTE | 2017-04-03 10:45 | NM ---
PROCEDURE: Nuclear Medicine Hepatobiliary Scan HISTORY: GB wall thickening COMPARISON: April 01, 2017. TECHNIQUE: 6.3 mCi of technetium 99m Mebrofenin was administered intravenously. Planar images of the abdomen were obtained at 5 min intervals to 60 mins. Delayed images were also obtained. FINDINGS: LIVER: Timely and homogenous uptake. COMMON BILE DUCT: identified at 5 mins. GALLBLADDER: identified at does not visualize at 04:00 mins. SMALL BOWEL: Identified at 5 mins. IMPRESSION: Positive Hepatobiliary Scan. The cystic duct is occluded indicative of acute cholecystitis. .
--- NOTE | 2017-04-03 13:11 | CP.PCM.PCO ---
Physician Communication Note - Physician Communication Note Physician Communication Note: Spoke to Dr. Pro, sales coach this am, patient is cleared for endo.
[2017-04-03] MEDS ORDERED: Iohexol 240 (50 ml) ONE (14:03)
[2017-04-03] MEDS ORDERED: Indomethacin 50 MG Suppository PR ONE (14:04)
[2017-04-03] MEDS ORDERED: Succinylcholine 200 mg/10 ml Inj IV ONE (15:24)
[2017-04-03] MEDS ORDERED: Propofol 10 mg/ml Inj (20 ML) ONE (15:24)
[2017-04-03] MEDS ORDERED: Albuterol HFA 90 mcg/actuation (8 g) ONE (15:44)
--- NOTE | 2017-04-03 15:55 | PN ---
DATE: 04/03/2017 The patient is in room 267, bed 2. REASON FOR CONSULTATION AND FOLLOWUP: Elevated troponin, sepsis, gallstone, cholecystitis. HISTORY OF PRESENT ILLNESS: The patient is an 81-year-old female who was admitted with abdominal pola n, fever and chills, found to have cholecystitis and cholangitis, ____ as well as stone in common niki e duct. The patient found to have troponin mildly elevated without any chest pain, without any cardi ac symptoms. The patient's GI symptoms have improved a lot with the antibiotics. The patient is sit ting in chair without any cardiac symptoms. PHYSICAL EXAMINATION: VITAL SIGNS: Blood pressure 140/66, respirations 20, pulse 68, temperature 98.7. HEAD: Normocephalic. EYES: Pupils normal. Conjunctivae normal. NOSE AND THROAT: Normal. NECK: JVP low. Carotid equal. THORAX: AP diameter normal. LUNGS: Clear. CARDIOVASCULAR: S1, S2. Ejection systolic murmur grade II/. No rub. ABDOMEN: Soft. No tenderness, no organomegaly. Bowel sounds normal. EXTREMITIES: No clubbing, no cyanosis. LABORATORY DATA: WBC 10.3, hemoglobin 14.2, hematocrit 41.3, platelets 87. Sodium 140, potassium 3. 7, BUN 12, creatinine 0.8, calcium 8.3, phosphorus 1.8, AST 30, ALT 71. Today's troponin 0.11. TSH 7.49. DIAGNOSES: Cholecystitis, cholangitis, gram-negative sepsis with blood cultures positive for gram-ne gative rods, gallstones, stone in the common bile duct, asthma, hypercholesterolemia, slightly elevat ed troponin. PLAN: The patient's slightly elevated troponin is most likely on the basis of sepsis. Also on admis malissa, the patient's BUN was 32 with creatinine 1.4 which has come down to normal now, and troponin al so has come down to lower levels. Abnormal kidney function as in this patient can also give to false rise of troponin, so this troponin elevation may be due to 2 factors - due to abnormal kidney functi on on admission and also sepsis. So, from cardiac point of view, the patient can go for ERCP at mode rate to high risk. The patient already has been started on beta blockers. Since patient is slightly hypothyroid, will increase her Synthroid dose to 125 mcg p.o. daily (before, she was on 100 mcg p.o. daily), and we will follow with you. Myah Pro MD cc: [id number] TT: 04/03/2017 12:01:55 Confirmation # [id number] Dictation # [id number] 04/03/2017 14:54:47
[2017-04-03] MEDS ORDERED: ePHEDrine 50 mg/ml Inj ONE (16:27)
[2017-04-03] MEDS ORDERED: Glucagon Recombinant 1 mg Inj ONE (16:42)
--- NOTE | 2017-04-03 16:44 | CP.PCM.PN ---
Subjective - Date & Time of Evaluation Date of Evaluation: 04/03/17 Time of Evaluation: 12:45 - Subjective Subjective: Patient is resting comfortably on a chair, not in distress, afebrile, no nausea , no diarrhea. Objective - Vital Signs/Intake and Output Vital Signs (last 24 hours): Temp Pulse Resp BP Pulse Ox 98.5 F 68 14 165/74 H 96 04/03/17 15:17 04/03/17 15:17 04/03/17 15:17 04/03/17 15:17 04/03/17 15:17 Intake and Output: 04/03/17 04/03/17 06:59 18:59 Intake Total 1560 180 Output Total 700 Balance 860 180 - Medications Medications: Current Medications Arformoterol Tartrate (Brovana) 15 mcg IH [id number] [facility] Last Admin: 04/03/17 08:05 Dose: Not Given Aspirin (Ecotrin) 81 mg PO DAILY [facility] Last Admin: 04/01/17 09:00 Dose: 81 mg Budesonide (Pulmicort Respules) 0.5 mg IH [id number] [facility] Last Admin: 04/03/17 08:05 Dose: Not Given Heparin Sodium (Porcine) (Heparin) 5,000 units SC Q12 [facility] PRN Reason: Protocol Last Admin: 04/03/17 10:45 Dose: Not Given Home Med (Home Med) 0 unit PO BID [facility] Last Admin: 04/03/17 09:50 Dose: 1 unit Sodium Chloride (Sodium Chloride 0.9%) 1,000 mls @ 100 mls/hr IV .Q10H [facility] Last Admin: 04/02/17 23:17 Dose: 100 mls/hr Meropenem 1g/NS 100mL IVPB (Meropenem 1g/Ns 100ml Ivpb) 1 gm in 100 mls @ 100 mls/hr IVPB Q8 [facility] PRN Reason: Protocol Stop: 04/09/17 22:01 Last Admin: 04/03/17 14:37 Dose: 100 mls/hr Levothyroxine Sodium (Synthroid) 125 mcg PO ACB [facility] Metoprolol Tartrate (Lopressor) 25 mg PO BID [facility] Last Admin: 04/03/17 09:51 Dose: 25 mg - Labs Labs: 04/03/17 05:00 04/03/17 05:00 PT 10.9 Seconds (9.9-11.8) 04/02/17 07:00 INR 1.01 (0.93-1.08) 04/02/17 07:00 APTT 32.0 Seconds (23.7-30.8) H 04/02/17 07:00 - Constitutional Appears: Non-toxic, No Acute Distress - Head Exam Head Exam: NORMAL INSPECTION - ENT Exam ENT Exam: Mucous Membranes Moist - Neck Exam Neck Exam: absent: Lymphadenopathy, Meningismus - Respiratory Exam Respiratory Exam: Decreased Breath Sounds - Cardiovascular Exam Cardiovascular Exam: +S1, +S2 - GI/Abdominal Exam GI & Abdominal Exam: Soft. absent: Tenderness Assessment and Plan - Assessment and Plan (Free Text) Plan: Assessment Severe sepsis with acute renal failure due to E. coli bacteremia, consider secondary to biliary tree infection and acute cholecystitis dyslipidemia asthma hypothyroidism morbid obesity with BMI 40 Plan HIDA scan is positive; although E. coli is sensitive, we will continue Meropenem day 3 pending results of the ERCP to be done today; there is plan also for laparoscopic cholecystectomy for the patient after the ERCP Will continue to monitor clinically
[2017-04-03] MEDS ORDERED: Neostigmine Methylsulfate 3mg/3ml Syringe IV ONE (17:11)
[2017-04-03] MEDS ORDERED: Lactated Ringer's 1,000 ML IV SCH (18:02)
--- NOTE | 2017-04-03 18:38 | CARD ---
APPROVED REPORT EXAM: Two-dimensional and M-mode echocardiogram with Doppler and color Doppler. INDICATION R/O ENDOCARDITIS/PRE-OP/LVFX 2D DIMENSIONS Left Atrium (2D)4.3 (1.6-4.0cm)IVSd1.3 (0.7-1.1cm) LVDd4.4 (3.9-5.9cm)PWd1.2 (0.7-1.1cm) LVDs3.1 (2.5-4.0cm)FS (%) 29.2 % LVEF (%)56.3 (>50%) M-Mode DIMENSIONS Aortic Root2.70 (2.2-3.7cm)Aortic Cusp Exc.1.40 (1.5-2.0cm) Aortic Valve AoV Peak Udpgngbm150.0cm/sAoV VTI43.0cmAO Peak GR.16mmHg LVOT Peak Ksvuelgb430.0cm/sLVOT VTI24.00cmAO Mean GR.8mmHg Mitral Valve MV E Qrbmtsnx86.0cm/sMV A Gyoglusj447.0cm/sE/A ratio0.7 TDI Lateral E' Peak V6.14cm/sMedial E' Peak V6.24cm/sE/Lateral E'12.5 E/Medial E'12.3 Pulmonary Valve PV Peak Tsndckup60.5cm/sPV Peak Grad.2mmHg Tricuspid Valve TR Peak Pocyhhcg218id/sRAP [id number] Peak Gr.24mmHg OQFT24rnRy LEFT VENTRICLE The left ventricle is normal size. There is borderline to mild concentric left ventricular hypertrophy. The left ventricular function is normal.EF-55% There is mild hypokinesis in the mid-inferoseptal wall. Transmitral Doppler flow pattern is Grade III-reversible restrictive diastolic dysfunction. No left ventricle thrombus noted on this study. There is no ventricular septal defect visualized. There is no left ventricular aneurysm. There is no mass noted in the left ventricle. RIGHT VENTRICLE The right ventricle is normal size. There is normal right ventricular wall thickness. The right ventricular systolic function is normal. ATRIA The left atrium is mildly dilated. The right atrium is mildly dilated. The interatrial septum is intact with no evidence for an atrial septal defect. AORTIC VALVE The aortic valve is moderately thickened but opens well. The aortic valve is moderately sclerotic. There is trace aortic regurgitation. Aortic Sclerosis Vs mild As MITRAL VALVE The mitral valve is thickened but opens well. Mitral annular calcification is moderate. Mitral regurgitation is moderate to severe. The mitral regurgitant jet is eccentrically directed. There is no mitral valve stenosis. There is no evidence of mitral valve prolapse. TRICUSPID VALVE The tricuspid valve leaflets are thickened , but open well. There is mild tricuspid regurgitation.RVSP-34 Mmof Hg. There is no tricuspid valve stenosis. There is no tricuspid valve prolapse or vegetation. PULMONIC VALVE The pulmonic valve is borderline thickened. There is trace pulmonic valvular regurgitation. There is no pulmonic valvular stenosis. GREAT VESSELS The aortic root is normal in size. The ascending aorta is normal in size. The pulmonary artery is normal. The IVC is normal in size and collapses >50% with inspiration. PERICARDIAL EFFUSION There is no pleural effusion. There is no pericardial effusion. <Conclusion> The left ventricle is normal size. There is borderline to mild concentric left ventricular hypertrophy. The left ventricular function is normal.EF-55% There is trace aortic regurgitation. Aortic Sclerosis Vs mild As Mitral regurgitation is moderate to severe. The mitral regurgitant jet is eccentrically directed. There is mild tricuspid regurgitation.RVSP-34 Mmof Hg. There is no pericardial effusion. The IVC is normal in size and collapses >50% with inspiration.
[2017-04-04] MEDS: Sodium Chloride 0.9% 1,000 ML IV SCH ×3 (04:51→20:50)
[2017-04-04] MEDS: Meropenem 1g/NS 100mL IVPB 1 GM/100 ML PIGGYBACK IVPB SCH (05:00)
[2017-04-04 07:16] LABS: HEMATOCRIT 45.3 % (36.0-48.0); MEAN CELL VOLUME 90.1 fL (80.0-105.0); MEAN CORPUSCULAR HEMOGLOBIN 30.8 pg (25.0-35.0); MEAN CORPUSCULAR HGB CONC 34.2 g/dl (31.0-37.0); MEAN PLATELET VOLUME 11.1 fl (7.0-11.0); RED CELL DISTRIBUTION WIDTH 13.8 % (11.5-14.5)
[2017-04-04] MEDS ORDERED: Levothyroxine 100 MCG TAB PO SCH (07:30)
[2017-04-04 07:38] LABS: ALB/GLOB RATIO 0.9 (1.1-1.8); ALKALINE PHOSPHATASE 105 U/L (38-133); ALT/SGPT 59 U/L (7-56); AMYLASE 31 U/L (35-125); AST/SGOT 26 U/L (15-39); BILIRUBIN,TOTAL 0.8 mg/dL (0.2-1.3); BLOOD UREA NITROGEN 12 mg/dL (7-21); CALCIUM 8.5 mg/dL (8.4-10.5); CARBON DIOXIDE 24 mmol/L (21-33); CHLORIDE 108 mmol/L (98-107); GFR AFRICAN-AMERICAN > 60; GLUCOSE,RANDOM 102 mg/dL (70-110); POTASSIUM 4.2 mmol/L (3.6-5.0); SODIUM 139 mmol/L (132-148)
[2017-04-04] MEDS: Levothyroxine 125 MCG TAB PO SCH (07:55)
[2017-04-04] MEDS: Budesonide 0.5 mg/2 ml Inhal Susp UD IH SCH ×2 (08:21→22:48)
[2017-04-04] MEDS: Arformoterol 15 mcg/2 ml Inh Sol IH SCH ×2 (08:21→22:48)
--- NOTE | 2017-04-04 09:17 | PN ---
DATE: 04/04/2017 The patient is status post ERCP with stent placement for choledocholithiasis. The patient is schedul ed for 11 a.m. surgery this morning for elective cholecystectomy for cholelithiasis and cholecystitis , status post sepsis syndrome. She is afebrile over the last several days. Her white count has drop ped from 24,000 to 8000. Her platelet count was as low as 87,000. Heparin was held. Her platelets are up to 108 today. She is scheduled for surgery. She is off heparin. She also had some esophagea l ulcers on endoscopy, was ____treated postop. PHYSICAL EXAMINATION: VITAL SIGNS: Stable. ABDOMEN: Soft. CHEST: Clear to auscultation and percussion. HEART: Regular sinus rhythm. The patient had cleared for surgery. Rafael Spicer MD cc: [id number] TT: 04/04/2017 09:16:44 Confirmation # [id number] Dictation # [id number]
[2017-04-04] MEDS: [UNRECOGNIZED DRUG - OTHER] PO SCH ×2 (09:32→16:59)
[2017-04-04] MEDS ORDERED: Propofol 10 mg/ml Inj (20 ML) ONE (10:24)
[2017-04-04] MEDS ORDERED: Rocuronium 10 mg/ml (5 ml) ONE (10:25)
[2017-04-04] MEDS ORDERED: Bupivacaine 0.5% Inj(30mL) ONE (11:02)
[2017-04-04] MEDS ORDERED: Iohexol 240 (50 ml) ONE (11:02)
--- NOTE | 2017-04-04 11:36 | CP.PCM.PN ---
Subjective - Date & Time of Evaluation Date of Evaluation: 04/04/17 Time of Evaluation: 11:36 - Subjective Subjective: Dr. Nabeel Page PGY1 Surgery Note for Dr. Salcedo Patient seen and examined at bedside this AM; denies any fevers/chills, GILL, CP, SOB, abdominal pain, N/V/D, dysuria/freq/urg, or lower extremity pain/swelling. Objective - Vital Signs/Intake and Output Vital Signs (last 24 hours): Temp Pulse Resp BP Pulse Ox 97.4 F L 78 19 146/72 98 04/04/17 10:30 04/04/17 10:30 04/04/17 10:30 04/04/17 10:30 04/04/17 10:30 Intake and Output: 04/04/17 04/04/17 06:59 18:59 Intake Total 1320 Balance 1320 - Medications Medications: Current Medications Arformoterol Tartrate (Brovana) 15 mcg IH [id number] [facility] Last Admin: 04/04/17 08:21 Dose: Not Given Aspirin (Ecotrin) 81 mg PO DAILY [facility] Last Admin: 04/01/17 09:00 Dose: 81 mg Budesonide (Pulmicort Respules) 0.5 mg IH [id number] [facility] Last Admin: 04/04/17 08:21 Dose: Not Given Home Med (Home Med) 0 unit PO BID [facility] Last Admin: 04/04/17 09:32 Dose: Not Given Sodium Chloride (Sodium Chloride 0.9%) 1,000 mls @ 100 mls/hr IV .Q10H [facility] Last Admin: 04/04/17 04:51 Dose: 100 mls/hr Meropenem 1g/NS 100mL IVPB (Meropenem 1g/Ns 100ml Ivpb) 1 gm in 100 mls @ 100 mls/hr IVPB Q8 [facility] PRN Reason: Protocol Stop: 04/09/17 22:01 Last Admin: 04/04/17 05:00 Dose: 100 mls/hr Levothyroxine Sodium (Synthroid) 125 mcg PO ACB [facility] Last Admin: 04/04/17 07:55 Dose: Not Given Metoprolol Tartrate (Lopressor) 25 mg PO BID [facility] Last Admin: 04/04/17 09:33 Dose: Not Given - Labs Labs: 04/04/17 06:30 04/04/17 06:30 PT 10.9 Seconds (9.9-11.8) 04/02/17 07:00 INR 1.01 (0.93-1.08) 04/02/17 07:00 APTT 32.0 Seconds (23.7-30.8) H 04/02/17 07:00 - Head Exam Additional comments: Head Exam: ATRAUMATIC, NORMAL INSPECTION - Eye Exam Eye Exam: EOMI - ENT Exam ENT Exam: Mucous Membranes Moist - Neck Exam Neck exam: Positive for: Full Rom. Negative for: Lymphadenopathy - Respiratory Exam Respiratory Exam: Clear to Auscultation Bilateral, NORMAL BREATHING PATTERN. absent: Rales, Rhonchi, Wheezes - Cardiovascular Exam Cardiovascular Exam: REGULAR RHYTHM, +S1, +S2 - GI/Abdominal Exam GI & Abdominal Exam: Normal Bowel Sounds, Soft. absent: Bruit, Organomegaly, Pulsatile Mass, Rebound, Rigid, Tenderness - Extremities Exam Extremities exam: Positive for: full ROM, normal inspection. Negative for: calf tenderness - Back Exam Back exam: NORMAL INSPECTION. absent: CVA tenderness (L), CVA tenderness (R), paraspinal tenderness - Neurological Exam Neurological exam: Alert, CN II-XII Intact, Oriented x3 - Psychiatric Exam Psychiatric exam: Normal Affect, Normal Mood - Skin Warm Assessment and Plan - Assessment and Plan (Free Text) Assessment: This is an 81yo F who was admitted to the hospital for Sepsis 2/2 to possible diverticulitis/cholecystitis -OR today for Choly -AST and ALT are normalizing; bilirubin normal since admission; sepsis is resolving; kidney function improving -CT scan showed impressive golf ball sized stone in the gallbladder -Patient has been NPO since midnight -patient is able to ambulate and should be out of bed and walking around as tolerated -d/w Dr. Matias Page PGY1 Surgery Note
[2017-04-04] MEDS ORDERED: Neostigmine Methylsulfate 3mg/3ml Syringe IV ONE (11:53)
[2017-04-04] MEDS ORDERED: Glycopyrrolate 0.2 mg/ml (2ml vial) ONE (12:07)
[2017-04-04] MEDS ORDERED: Morphine 2 mg/ml ISec IVP PRN (12:49)
[2017-04-04] MEDS ORDERED: Lactated Ringer's 1,000 ML IV SCH (12:49)
[2017-04-04] MEDS ORDERED: HYDROmorphone 0.5 mg/0.5 ml ISec IVP PRN (12:49)
--- NOTE | 2017-04-04 12:49 | PCM.SURG1 ---
Surgeon's Initial Post Op Note - Surgeon's Notes Surgeon: Dr. Salcedo [employer] Administrator: Dr. Lemus PGY2, Dr. Hensley PGY1 Type of Anesthesia: General Endo, Local Anesthesia Administered By: Teodoro Pre-Operative Diagnosis: Cholelithiasis Operative Findings: see operative report Post-Operative Diagnosis: Same Operation Performed: Laparoscopic Cholecystectomy Specimen/Specimens Removed: Gallbladder, Large Gallstones Estimated Blood Loss: EBL {In ML}: 10 Blood Products Given: N/A Drains Used: Kale Post-Op Condition: Good Date of Surgery/Procedure: 04/04/17 Time of Surgery/Procedure: 12:48
--- NOTE | 2017-04-04 14:27 | PN ---
DATE: 04/04/2017 The patient is in bed, in no acute distress, nontoxic. PHYSICAL EXAMINATION: VITAL SIGNS: Temperature is 98, blood pressure is 160/70, respiratory rate of 16. HEENT: Unremarkable. NECK: Supple. LUNGS: Have decreased breath sounds. HEART: Normal S1, S2. ABDOMEN: Soft, nontender. LABORATORY EXAMINATION: Reveals a white count of 8000, hemoglobin of 15. BUN of 12, creatinine of 0 .2. Urinalysis is noted. Microbiology reveals E. coli in the blood with a negative urine culture. The E. coli in the blood is pansensitive. The patient is on meropenem. Dr. Spicer's note is reviewed. ASSESSMENT AND PLAN: An 81-year-old female, seen earlier this morning in [facility], bed 2, patient's daugh ter is at the bedside and who was initially admitted with severe sepsis with acute renal failure due to Escherichia coli bacteremia, secondary to biliary tree, acute cystitis, cholecystitis with dyslipi demia, asthma, hypothyroidism and morbid obesity with body mass index of 40 and the patient is on day #4 of meropenem. The patient is scheduled for cholecystectomy today. Since the Escherichia coli is pansensitive, we will discontinue the meropenem and use ceftriaxone and Flagyl. The patient was matt iting for the OR for a laparoscopic cholecystectomy by Dr. Salcedo. Nabeel Killian MD cc: [phone] TT: 04/04/2017 13:57:15 Confirmation # [id number] Dictation # [id number] en
[2017-04-04] MEDS: metroNIDAZOLE IV 500 mg/100 ml 500 MG/100 ML BAG IVPB SCH ×2 (14:30→21:36)
--- NOTE | 2017-04-04 16:25 | PN ---
DATE: 04/04/2017 REASON FOR CONSULTATION AND FOLLOWUP: Preop evaluation, risk stratification for possible cholecystec mona, elevated troponin, sepsis, acute cholecystitis, gram-negative sepsis. BRIEF CLINICAL HISTORY: This is an 81-year-old female admitted with abdominal pain, fever, sepsis se condary to acute cholecystitis, cholangitis, gram-negative sepsis, Escherichia coli and had a troponi n positive, maximum 0.2. Denies any chest pain, shortness of breath. No documented coronary artery disease prior. Cardiac consult was called for cardiac evaluation. Daughter is at the bedside. Exte nsive discussion done with the daughter yesterday and today. PHYSICAL EXAMINATION: VITAL SIGNS: Temperature afebrile, heart rate 70, blood pressure 150/67. HEENT: PERRLA. Extraocular muscles intact. NECK: Supple. No carotid bruits. No thyromegaly. CHEST: Clear to auscultation. HEART: S1, S2 regular. ABDOMEN: Soft. EXTREMITIES: Clubbing and cyanosis negative. LABORATORY DATA: Blood workup as follows: WBC 8, hemoglobin ____, hematocrit 45.3, platelet count 1 08. Chemistry shows sodium 113, potassium ____, chloride 108, carbon dioxide 24, anion gap of 11, BU N 12, creatinine 0.8. Troponin yesterday 0.11. EKG shows sinus tachycardia. No acute ST-T changes noted. Echocardiography done yesterday showed 55% EF, aortic sclerosis versus mild aortic stenosis, trace aortic regurgitation, moderate to severe mitral regurgitation, eccentrically directed jet, mild to TR, RV systolic pressure 34. No pericardial effusion noted. IMPRESSION: Acute cholecystitis, gram-negative sepsis, cholangitis, gram-negative sepsis, gallstone, a stone in common biliary duct, hyperlipidemia, morbid obesity, body mass index 41 kg/m2, height of the patient 5 feet 5 inches, weight of the patient is 246 pounds. Borderline troponin is positive se condary to gram-negative sepsis, as well as underlying coronary artery disease, moderate to severe mi tral regurgitation, preserved left ventricular function. RECOMMENDATION: Continue perioperative beta hannah. The patient is okay to go with moderate to hig h risk for cholecystectomy, though for any invasive procedure including ERCP and cholecystectomy is h igh risk because of underlying comorbidity, age, but risk/benefit ratio is in favor of having surgery , although patient can from gram-negative sepsis. The patient cannot be further cardiac catheter ization and angioplasty because ____ sepsis can kill the patient. In the interim, continue broad spe ctrum antibiotic, continue low-dose beta-hannah. Discussed with the patient, discussed with the mary mann. The patient's daughter and patient herself is very much concerned about taking the beta block er because she said that never been in high blood pressure, why would she take. Explained that patie nt's blood pressure is upper limit. Also, beta hannah will prevent from cardiac mortality and morbi dity perioperative because the patient has blood pressure ____ and tachycardic. I answered all quest ions. Will follow closely with you. As mentioned, patient is okay to go from cardiology point of vi ew for sepsis at a moderate to high risk, but no absolute contraindication. Myah Jaramillo MD cc: [facility] TT: 04/04/2017 16:25:24 Confirmation # [id number] Dictation # [id number] [email or web address]
[2017-04-04 16:42] VITALS: RESP 20
[2017-04-04] MEDS ORDERED: Oxycodone/Acetaminophen 5/325 mg Tab PO PRN (17:54)
--- NOTE | 2017-04-04 19:20 | OP ---
PROCEDURE DATE: 04/04/2017 PREOPERATIVE DIAGNOSIS: Acute cholecystitis. POSTOPERATIVE DIAGNOSIS: Acute cholecystitis. OPERATION PERFORMED: Laparoscopic cholecystectomy. DESCRIPTION OF PROCEDURE: In the operating room, the patient was identified by name, number, procedu re, laterality and the consent form. A supraumbilical incision was made through the skin and subcuta neous tissues and the abdomen entered. ____ successful timeout. The Veress needle was inserted, fol lowed by the Visiport, followed by the 10 mm scope. The xiphoid 5 and 2 lateral ports were placed. The fundus and infundibulum were pulled up. There were lots of adhesions that were taken down bluntl y, some minimal bleeding. As we pulled this off the distal gallbladder, there was a flash of bile fr om the distal gallbladder we believe. The cystic duct was identified. It was easily identified. Kasi frausto, as we dissected it, the gallbladder was entered and there were large leaks of bile from the g allbladder. The cystic duct was cleaned. It was doubly clipped and divided. The cystic artery was identified, doubly clipped and divided and the gallbladder taken off the liver bed using the Harmonic and the cautery as necessary. Three large stones were lost to the belly; they were found, identifie d, placed in the bag with the gallbladder removed. The abdomen was copiously irrigated and dried. I n the end there was nothing untoward. There was no bleeding, no bile and a Kale was placed because of the large loss of the fluid. The incision was closed with a PDS in the umbilicus and closed with Marcaine, Vicryl and Dermabond. Maurisio Salcedo MD cc: [phone] TT: 04/04/2017 19:19:25 teagan
--- NOTE | 2017-04-05 00:45 | PN ---
DATE: 04/05/2017 ADDENDUM: SUBJECTIVE: This patient was seen and evaluated earlier. This is an addendum to the GI progress report dictated by Josselyn Delarosa APN. The patient had surgery done. PHYSICAL EXAMINATION: VITAL SIGNS: Temperature 97.9. Blood pressure is 128/56, pulse is 66, respirations 20. HEENT: Atraumatic, anicteric. NECK: Supple. HEART: S1, S2 heard. LUNGS: Bilateral air entry present. ABDOMEN: Soft. There is no mass palpable. The patient has some discomfort in the surgical trocar site. EXTREMITIES: No cyanosis, no clubbing. LABORATORY DATA: Hemoglobin is 15.5, WBC 8, hematocrit 45.3, platelets 108. Chemistry shows nearly normalized LFTs. ALT is only 59. The patient's TSH level is elevated. IMPRESSION: This 81-year-old patient with common bile duct stone, admitted with a cholangitis, cholecystitis with ERCP and found 2 stones in the common bile duct. ERCP revealed cloudy bile suggestive of severe sepsis. The decision was taken to and 10-Czech stent placement. The patient's bile was significantly improving drainage. Discussed the procedure with Dr. Salcedo and also family doctor. therapy has come to normal and there is some significant thickening of the gallbladder wall . The decision was taken by the surgeon to take the patient to the OR. Postoperatively, the patient has been doing okay. Will continue to closely follow up her care. The patient may need repeat ERCP in a few weeks' time for removal of the stent and stone. Liss Alexander MD cc: [phone] TT: 04/05/2017 00:44:44 Confirmation # [id number] Dictation # [id number] [email or web address] EUBANKS
[2017-04-05] MEDS: metroNIDAZOLE IV 500 mg/100 ml 500 MG/100 ML BAG IVPB SCH (05:11)
[2017-04-05] MEDS: Levothyroxine 125 MCG TAB PO SCH (07:58)
[2017-04-05 08:04] LABS: MEAN CELL VOLUME 90.7 fL (80.0-105.0); MEAN CORPUSCULAR HEMOGLOBIN 30.6 pg (25.0-35.0); MEAN CORPUSCULAR HGB CONC 33.7 g/dl (31.0-37.0); MEAN PLATELET VOLUME 10.8 fl (7.0-11.0); RED CELL DISTRIBUTION WIDTH 14.1 % (11.5-14.5); WHITE BLOOD COUNT 8.7 [, 10^3/ul] (4.5-11.0)
[2017-04-05] MEDS: Budesonide 0.5 mg/2 ml Inhal Susp UD IH SCH ×2 (08:08→19:42)
[2017-04-05] MEDS: Arformoterol 15 mcg/2 ml Inh Sol IH SCH ×2 (08:08→19:42)
[2017-04-05 08:25] LABS: ALB/GLOB RATIO 0.9 (1.1-1.8); ALKALINE PHOSPHATASE 99 U/L (38-133); ALT/SGPT 51 U/L (7-56); AST/SGOT 24 U/L (15-39); BILIRUBIN,TOTAL 0.7 mg/dL (0.2-1.3); BLOOD UREA NITROGEN 14 mg/dL (7-21); CALCIUM 8.3 mg/dL (8.4-10.5); CARBON DIOXIDE 23 mmol/L (21-33); CHLORIDE 108 mmol/L (98-107); GFR AFRICAN-AMERICAN > 60; GLUCOSE,RANDOM 65 mg/dL (70-110); POTASSIUM 3.6 mmol/L (3.6-5.0); SODIUM 140 mmol/L (132-148); TOTAL PROTEIN 6.2 g/dL (5.8-8.3)
[2017-04-05] MEDS: [UNRECOGNIZED DRUG - OTHER] PO SCH ×3 (08:49→17:44)
--- NOTE | 2017-04-05 09:15 | CP.PCM.PN ---
Subjective - Date & Time of Evaluation Date of Evaluation: 04/05/17 Time of Evaluation: 07:00 - Subjective Subjective: Surgery Progress note. Dr. Salcedo PT seen and examined at bedside. No acute events overnight. Pain well tolerated. Patient sitting up in chair with family at bedside. Denies any N/V/ D. No F/C. Right Kale in place, to bulb suction, ~85cc of serrosanguinous output since surgery. No New complaints. Objective - Vital Signs/Intake and Output Vital Signs (last 24 hours): Temp Pulse Resp BP Pulse Ox 98.3 F 64 20 125/62 92 L 04/05/17 05:55 04/05/17 05:55 04/05/17 05:55 04/05/17 05:55 04/05/17 05:55 Intake and Output: 04/05/17 04/05/17 06:59 18:59 Intake Total 2120 Output Total 60 Balance 2060 - Medications Medications: Current Medications Arformoterol Tartrate (Brovana) 15 mcg IH [id number] [facility] Last Admin: 04/05/17 08:08 Dose: Not Given Aspirin (Ecotrin) 81 mg PO DAILY [facility] Last Admin: 04/01/17 09:00 Dose: 81 mg Budesonide (Pulmicort Respules) 0.5 mg IH [id number] [facility] Last Admin: 04/05/17 08:08 Dose: Not Given Home Med (Home Med) 0 unit PO BID [facility] Last Admin: 04/05/17 08:49 Dose: 1 unit Sodium Chloride (Sodium Chloride 0.9%) 1,000 mls @ 100 mls/hr IV .Q10H [facility] Last Admin: 04/04/17 20:50 Dose: 100 mls/hr Ceftriaxone Sodium (Rocephin 1 Gram Ivpb) 1 gm in 100 mls @ 100 mls/hr IVPB DAILY [facility] PRN Reason: Protocol Stop: 04/14/17 10:01 Potassium Chloride (Potassium Chloride 20 Meq/100 Ml) 20 meq in 100 mls @ 50 mls/hr IVPB ONCE ONE Stop: 04/05/17 10:49 Levothyroxine Sodium (Synthroid) 125 mcg PO ACB [facility] Last Admin: 04/05/17 07:58 Dose: 125 mcg Metoprolol Tartrate (Lopressor) 25 mg PO BID [facility] Last Admin: 04/04/17 18:24 Dose: 25 mg Oxycodone/Acetaminophen (Percocet 5/325 Mg Tab) 2 tab PO Q4H PRN PRN Reason: Pain, Mild (1-3) Stop: 04/07/17 17:55 - Labs Labs: 04/05/17 06:30 04/05/17 06:30 PT 10.9 Seconds (9.9-11.8) 04/02/17 07:00 INR 1.01 (0.93-1.08) 04/02/17 07:00 APTT 32.0 Seconds (23.7-30.8) H 04/02/17 07:00 - Constitutional Appears: Well, No Acute Distress - Head Exam Head Exam: ATRAUMATIC, NORMAL INSPECTION, NORMOCEPHALIC - Eye Exam Eye Exam: EOMI. absent: Scleral icterus - ENT Exam ENT Exam: Mucous Membranes Moist - GI/Abdominal Exam GI & Abdominal Exam: Soft Additional comments: appropriately tender to palpation, liza-incisional regions. Wound edges well approximated. Clean, dry, intact with dermabond. No guarding, no rebound. Non distended. - Extremities Exam Extremities Exam: Normal Inspection - Back Exam Back Exam: NORMAL INSPECTION - Neurological Exam Neurological Exam: Alert, Awake, Oriented x3 - Psychiatric Exam Psychiatric exam: Normal Affect, Normal Mood - Skin Skin Exam: Normal Color, Warm Assessment and Plan - Assessment and Plan (Free Text) Assessment: 81yo F with Cholecystitis. S/p Lap Cholecystectomy 5/4. POD 1 - Continue to monitor Kale output - f/u GB pathology - Continue IV Abx - Pain management: PO meds - Advance diet as tolerated. - Encourage Ambulation/ IS use Discussed case with Dr. Matias Hensley PGY1 surgery pager:[phone]
--- NOTE | 2017-04-05 09:19 | PN ---
DATE: 04/05/2017 The patient is in bed, in no acute distress, nontoxic. No fevers. PHYSICAL EXAMINATION: VITAL SIGNS: Temperature is 98, blood pressure is 109/50, respiratory rate of 28 and heart rate of 5 6. HEENT: Unremarkable. NECK: Supple. LUNGS: Have decreased breath sounds. HEART: Normal S1, S2. ABDOMEN: Soft, nontender. LABORATORY DATA: Reveals a white count of 8.7, hemoglobin of 14 and platelets of 154. BUN of 14, cr eatinine of 0.9. Procalcitonin is noted. Urinalysis is noted. MICROBIOLOGY: Reveals the blood cultures are positive for Escherichia coli which is sensitive to cef triaxone; however, it is resistant to quinolones, resistant to ampicillin, sensitive to Bactrim. REVIEW OF ORDERS: Reveals the patient to be on Flagyl and ceftriaxone. Operative note from castillo roman is reviewed. Dr. Alexander's note is reviewed. ASSESSMENT AND PLAN: This is an 81-year-old female seen earlier this morning, doing well, admitted w ith severe sepsis, acute kidney injury, Escherichia coli bacteremia secondary to cholecystitis and ch olangitis, status post laparoscopic cholecystectomy. Currently on Rocephin and Flagyl. Will discont inue the Flagyl and if the patient is ready for discharge may be able to switch to p.o. Augmentin, 87 5 p.o. b.i.d. The patient is passing gas this morning. She now will be on ceftriaxone. Upon discha rge, may switch to p.o. Augmentin 875 p.o. b.i.d. for a total of 7-10 days. Repeat blood cultures ar e negative. Nabeel Killian MD cc: [phone] TT: 04/05/2017 09:18:08 Confirmation # [id number] Dictation # [id number] [email or web address]
[2017-04-05] MEDS ORDERED: Sodium Chloride 0.9% 1,000 ML IV SCH (09:26)
[2017-04-05] MEDS: Dextrose 5%/0.45% NS 1,000 ML IV SCH ×2 (09:58→22:14)
[2017-04-05] MEDS ORDERED: cefTRIAXone 1 gm 1 GM/100 ML BAG IVPB SCH (10:00)
--- NOTE | 2017-04-05 10:05 | PN ---
DATE: 04/05/2017 REASON FOR CONSULTATION AND FOLLOWUP: Preop evaluation, risk stratification for possible cholecystec mona, elevated troponin, sepsis, acute cholecystitis, gram-negative sepsis. BRIEF CLINICAL HISTORY: This is an 81-year-old female admitted with abdominal pain, fever, sepsis se condary to acute cholecystitis, cholangitis, gram-negative sepsis, Escherichia coli bacteremia. Had a troponin positive, maximum 0.2. Now, the troponin trended down. The patient was cleared as a high risk surgery for ERCP. The patient has a stone in the common bile duct. Yesterday, patient had a c holecystectomy with drainage placed. Now, patient is comfortable. Denies any chest pain, shortness of breath, any palpitation. PHYSICAL EXAMINATION: VITAL SIGNS: Temperature afebrile, heart rate 64, blood pressure 125/62. HEENT: PERRLA. Extraocular muscles intact. NECK: Supple. No carotid bruits. No thyromegaly. CHEST: Clear to auscultation. HEART: S1, S2 regular. ABDOMEN: Soft. Drainage noted in the right upper quadrant attached to the bag. EXTREMITIES: Clubbing, cyanosis negative. BLOOD WORKUP: WBC 8.7, hemoglobin 14.5, hematocrit 43, platelet count 154. Sodium 140, potassium 3. 6, chloride 108, carbon dioxide 23, anion gap of 13, BUN 14, creatinine 0.9, random sugar 65. IMPRESSION: Sepsis, gram-negative bacteremia, leukocytosis, now after cholecystectomy WBC came back to 8.7, back to normal. Elevated troponin probably secondary to hemodynamic instability, doubt it is myocardial infarction, but cannot rule out underlying coronary artery disease because of the risk fa ctor. The patient had echocardiography done yesterday that shows ejection fraction 59%, trace aortic regurgitation, aortic sclerosis versus mild aortic stenosis, moderate to severe mitral regurgitation , eccentrically dilated jet, mild tricuspid regurgitation, right ventricular systolic pressure 37. O besity, body mass index 42 kg/meters squared, borderline hypertension, gram-negative sepsis. RECOMMENDATION: Continue antibiotic, continue low-dose beta-hannah, continue ambulate. Supplement potassium. Once sepsis controlled and drainage tube is out, consider stress test before the patient goes home. We will follow with you. Thank you, Dr. Spicer, for providing us the opportunity in taking care of the patient. Myah Jaramillo MD cc: [phone] TT: 04/05/2017 10:05:09 Confirmation # [id number] Dictation # [id number] en
--- NOTE | 2017-04-05 10:42 | PN ---
DATE: 04/05/2017 The patient is an 81-year-old white female status post ERCP with stent, status post laparoscopic chol ecystectomy. The patient is postoperative day 1, doing well. Vital signs are stable. She is afebri le. White count is normal. The patient has tolerated surgery well. She is tolerating a liquid diet . Her bowel sounds are hypoactive, but the abdomen is minimally tender. The patient will start phys ical therapy and occupational therapy and continue IV antibiotics after having sepsis of her infected gallbladder. The patient will be discharged home in the next 24-48 hours. Rafael Spicer MD cc: [phone] TT: 04/05/2017 10:42:05 Confirmation # [id number] Dictation # [id number] jn
--- NOTE | 2017-04-05 19:26 | PN ---
DATE: 04/05/2017 Seen and examined at the bedside, out of bed to chair with sister at bedside. No reports of nausea, vomiting or abdominal pain. Tolerating oral intake. No fever or chills. No reports of overt GI ble ed. VITAL SIGNS: Temperature is 98.3, blood pressure 122/56, pulse is 64, respirations 20. LABORATORY DATA: WBC 8.7, H and H 14.5 and 43.0, platelets 154. Sodium 140, K 3.6, BUN 14, creatini ne 0.9, total bilirubin 0.7, AST 24, ALT 51, alkaline phosphatase is 99. LFTs within normal limits. PHYSICAL EXAMINATION: HEENT: Sclerae is anicteric. NECK: Supple. CARDIAC: S1, S2. LUNGS: With decreased breath sounds, but good air entry, no rales or wheeze. ABDOMEN: With bowel sounds. Incision sites are dry and intact with Dermabond. No rebound, guarding . EXTREMITIES: No edema. NEUROLOGIC: Awake, alert, and oriented. ASSESSMENT: An 81-year-old female with acute cholecystitis, status post laparoscopic cholecystectomy . The patient also found to have common biliary duct stone, status post endoscopic retrograde cholan giopancreatography, status post 10 Bengali stent placement improved, resolved sepsis. Liver function tests are now normalized. Other comorbidities are include hyperlipidemia, obesity, coronary artery d isease. PLAN: The patient is on ceftriaxone. Monitor LFTs. The patient will need to have repeat ERCP in a few weeks' time to removed biliary stent and stones. The patient was seen and case discussed with Dr Gilberto Alexander. Josselyn ALMAGUER cc: [phone] TT: 04/05/2017 19:26:04 Confirmation # [id number] Dictation # [id number] teagan
[2017-04-06 06:15] VITALS: TEMP 98.7; O2SAT 93
--- NOTE | 2017-04-06 07:32 | CP.PCM.PN ---
Subjective - Date & Time of Evaluation Date of Evaluation: 04/06/17 Time of Evaluation: 07:31 - Subjective Subjective: Gen Sx: Dr Salcedo Pt S&E. ABILIOEO. Tolerating regular diet. Passing flatus. Had small BM this morning. Denies abdominal pain. Has been OOB and ambulating D/W ID; pt clear for transition to PO abx Pt still on 2L/NC Objective - Vital Signs/Intake and Output Vital Signs (last 24 hours): Temp Pulse Resp BP Pulse Ox 98.7 F 63 20 134/59 L 93 L 04/06/17 06:00 04/06/17 06:00 04/06/17 06:00 04/06/17 06:00 04/06/17 06:00 Intake and Output: 04/06/17 04/06/17 06:59 18:59 Intake Total 1620 Output Total 0 Balance 1620 - Medications Medications: Current Medications Arformoterol Tartrate (Brovana) 15 mcg IH [id number] [facility] Last Admin: 04/05/17 19:42 Dose: Not Given Aspirin (Ecotrin) 81 mg PO DAILY [facility] Last Admin: 04/01/17 09:00 Dose: 81 mg Budesonide (Pulmicort Respules) 0.5 mg IH [id number] [facility] Last Admin: 04/05/17 19:42 Dose: Not Given Home Med (Home Med) 0 unit PO BID [facility] Last Admin: 04/05/17 17:44 Dose: 1 unit Ceftriaxone Sodium (Rocephin 1 Gram Ivpb) 1 gm in 100 mls @ 100 mls/hr IVPB DAILY [facility] PRN Reason: Protocol Stop: 04/14/17 10:01 Last Admin: 04/05/17 09:56 Dose: 100 mls/hr Dextrose/Sodium Chloride (Dextrose 5%/0.45% Ns 1000 Ml) 1,000 mls @ 75 mls/hr IV .[id number] [facility] Last Admin: 04/05/17 22:14 Dose: 75 mls/hr Levothyroxine Sodium (Synthroid) 125 mcg PO ACB [facility] Last Admin: 04/05/17 07:58 Dose: 125 mcg Metoprolol Tartrate (Lopressor) 25 mg PO BID [facility] Last Admin: 04/05/17 17:45 Dose: 25 mg Oxycodone/Acetaminophen (Percocet 5/325 Mg Tab) 2 tab PO Q4H PRN PRN Reason: Pain, Mild (1-3) Stop: 04/07/17 17:55 - Labs Labs: 04/05/17 06:30 04/05/17 06:30 PT 10.9 Seconds (9.9-11.8) 04/02/17 07:00 INR 1.01 (0.93-1.08) 04/02/17 07:00 APTT 32.0 Seconds (23.7-30.8) H 04/02/17 07:00 - Constitutional Appears: Non-toxic, No Acute Distress - Head Exam Head Exam: NORMOCEPHALIC - Eye Exam Eye Exam: Normal appearance - Respiratory Exam Respiratory Exam: absent: Accessory Muscle Use, Respiratory Distress - Cardiovascular Exam Cardiovascular Exam: REGULAR RHYTHM. absent: Tachycardia - GI/Abdominal Exam GI & Abdominal Exam: Soft. absent: Distended, Firm, Guarding, Rigid, Tenderness Additional comments: incisions c/d/i NGUYEN w/ 10cc serosanguinous - Neurological Exam Neurological Exam: Alert, Awake, Oriented x3 - Psychiatric Exam Psychiatric exam: Normal Affect, Normal Mood - Skin Skin Exam: Normal Color, Warm Assessment and Plan - Assessment and Plan (Free Text) Assessment: 81F POD#2 s/p lap jessica Plan: transition to PO abx as per ID Cont incentive spirometer recommend removing O2 as pt does not require at home Pt clear for D/C on PO abx (for bacteremia) from surgical standpoint follow up next week at Dr Salcedo's clinic d/w Dr Matias Guzman, DO, PGY2 please page president ceo & founder when discharged to remove drain [phone]
[2017-04-06 07:44] LABS: ADD MANUAL DIFF? NO
[2017-04-06] MEDS: Arformoterol 15 mcg/2 ml Inh Sol IH SCH (07:49)
[2017-04-06] MEDS: Budesonide 0.5 mg/2 ml Inhal Susp UD IH SCH (07:49)
[2017-04-06] MEDS: Levothyroxine 125 MCG TAB PO SCH (07:49)
[2017-04-06 08:02] LABS: ALB/GLOB RATIO 0.9 (1.1-1.8); ALKALINE PHOSPHATASE 91 U/L (38-133); ALT/SGPT 51 U/L (7-56); AST/SGOT 25 U/L (15-39); BILIRUBIN,TOTAL 0.7 mg/dL (0.2-1.3); BLOOD UREA NITROGEN 13 mg/dL (7-21); CALCIUM 8.3 mg/dL (8.4-10.5); CARBON DIOXIDE 26 mmol/L (21-33); CHLORIDE 107 mmol/L (98-107); GFR AFRICAN-AMERICAN > 60; GLUCOSE,RANDOM 93 mg/dL (70-110); MAGNESIUM 2.1 mg/dL (1.7-2.2); PHOSPHOROUS 2.4 mg/dL (2.5-4.5); POTASSIUM 3.6 mmol/L (3.6-5.0); SODIUM 140 mmol/L (132-148); TOTAL PROTEIN 6.1 g/dL (5.8-8.3)
[2017-04-06 08:11] LABS: BASO # 0.14 [, K/mm3] (0.0-2.0); BASO % 1.8 % (0.0-3.0); EOS # 0.3 (0.0-0.7); EOS % 3.7 % (1.5-5.0); GRAN # 4.29 (1.4-6.5); GRAN % 54.9 % (50.0-68.0); HEMATOCRIT 41.8 % (36.0-48.0); LYMPH # 1.9 (1.2-3.4); LYMPH % 24.5 % (22.0-35.0); MEAN CELL VOLUME 90.3 fL (80.0-105.0); MEAN CORPUSCULAR HEMOGLOBIN 30.7 pg (25.0-35.0); MEAN PLATELET VOLUME 10.8 fl (7.0-11.0); MONO # 1.2 (0.1-0.6); MONO % 15.1 % (1.0-6.0); PLATELET COUNT 190 [, 10^3/uL] (120.0-450.0); RED CELL DISTRIBUTION WIDTH 14.2 % (11.5-14.5); WHITE BLOOD COUNT 7.8 [, 10^3/ul] (4.5-11.0)
--- NOTE | 2017-04-06 09:14 | PN ---
DATE: 04/06/2017 The patient is in bed in no acute distress, nontoxic. The patient seen early this morning. PHYSICAL EXAMINATION: VITAL SIGNS: Temperature is 98, blood pressure is 120/70, respiratory rate of 16. HEENT: Unremarkable. NECK: Supple. LUNGS: Have decreased breath sounds. HEART: Normal S1, S2. ABDOMEN: Soft. LABORATORY EXAMINATION: Reveals a white count of 7.8, hemoglobin of 14, platelets of 190, BUN of 13, creatinine of 0.9. Urinalysis is noted. Microbiology reveals the patient's repeat cultures are neg ative. Initial cultures are E. coli that is resistant to quinolones, sensitive to ceftriaxone. ASSESSMENT AND PLAN: An 81-year-old female seen earlier this morning with surgical team. Initially, the patient was admitted with severe sepsis, acute kidney injury, acute presentation with [place] a coli bacteremia secondary to cholecystitis and cholangitis, status post laparoscopic cholecystectom y, on ceftriaxone and we will switch to p.o. Augmentin to complete therapy 875 p.o. b.i.d. Case disc ussed with Dr. Donny Guzman. The patient, as of this morning, still has drainage intraabdominal an d we will follow as outpatient if the patient is to be discharged. Nabeel Killian MD cc: [phone] TT: 04/06/2017 09:13:52 Confirmation # [id number] Dictation # [id number] tn
[2017-04-06] MEDS ORDERED: Amoxicillin-Clav 875-125 mg Tab PO SCH (10:00)
[2017-04-06] MEDS: [UNRECOGNIZED DRUG - OTHER] PO SCH (10:02)
[2017-04-06 10:08] VITALS: BP 132/62; PULSE 65
--- NOTE | 2017-04-06 10:24 | PN ---
DATE: 04/06/2017 LOCATION: The patient is in room 267, bed 2. REASON FOR EVALUATION: Risk stratification for possible cholecystectomy, elevated troponin, sepsis. HISTORY OF PRESENT ILLNESS: An 81-year-old female was admitted with fever and chills and found to sanchez ve sepsis due to acute cholecystitis and cholangitis, gram-negative sepsis with Escherichia coli bact eremia. Troponin was slightly elevated, maximum was 0.2. The patient had no chest pain, so the oneal ent had ERCP for is a tone in the common bile duct and then followed by cholecystectomy, and wa s placed. The patient denies any chest pain, shortness of breath, or palpitation. The patient is si tting comfortably in chair without any cardiac symptoms. PHYSICAL EXAMINATION: VITAL SIGNS: Blood pressure 134/59, respirations 20, pulse 63, temperature 98.7. HEAD: Normocephalic. EYES: Pupils normal. Conjunctivae normal. NOSE AND THROAT: Normal. NECK: JVP low. Carotid equal. THORAX: AP diameter normal. LUNGS: Clear. CARDIOVASCULAR: S1, S2. ABDOMEN: Soft, nontender, no organomegaly. Bowel sounds normal. EXTREMITIES: No clubbing, no cyanosis. LABORATORY DATA: WBC 7.8, hemoglobin 14.2, hematocrit 41.8, platelets 190. Sodium 140, potassium 3. 6, BUN 13, creatinine 0.9, calcium 8.3, phosphorus 2.4, total protein 6.1, albumin 2.9. IMPRESSION: Gram-negative sepsis with bacteremia, cholangitis, cholecystitis, status post cholecyste ctomy. Echo showed aortic sclerosis versus mild aortic stenosis with ejection fraction 59%. PLAN: The patient continues on metoprolol 25 b.i.d. The patient is getting antibiotics. The patien t and family knows that she has to follow cardiac point of view. She says she follows with a cardiol ogist as an outpatient and she will follow with them for further evaluation of elevation of troponin, and stress test versus catheterization. They know of the findings and they promise that they will s ee their own surveyor helper. Myah Pro MD cc: [phone] TT: 04/06/2017 10:23:55 Confirmation # [id number] Dictation # [id number] jn
--- NOTE | 2017-04-06 15:57 | DS ---
An 81-year-old white female status post cholecystectomy and ERCP with stent placement, status post se psis from cholelithiasis and choledocholithiasis. The patient is being discharged home today. Her d rain will be removed by surgery. She will be on p.o. Bactrim at home. She also was found on endosco py to have some esophageal ulcer. She will be on Carafate at home. Vital signs are stable. The pat ient is without complaints. She is ambulating and moving her bowels, tolerating her diet. She will be followed by Dr. Salcedo as an outpatient. FINAL DISCHARGE DIAGNOSES: Acute cholecystitis, sepsis syndrome, choledocholithiasis, esophageal ulc erations. Rafael Spicer MD cc: [phone] TT: 04/06/2017 15:57:03 rn
--- NOTE | 2017-04-24 15:47 | RAD ---
PROCEDURE: ERCP HISTORY: ? CBD OBST COMPARISON: TECHNIQUE: Fluoroscopy was provided in the operating room. 1 minutes and 47 seconds of fluoroscopy time was utilized. Five images were submitted. FINDINGS: The study shows placement of a biliary stent in the common duct. IMPRESSION: As above
== END 2017-04-06 13:33 | disposition home or self-care (01) | DRG 854 ==
LOC: ED 09:22 → MERGE 11:50 → ERH 11:50 → 2RNO 14:15
PROVIDERS: ADMIT Internal Medicine Nephrology; ATTEND Internal Medicine
PROC: 3E0F7GC Introduction of Other Therapeutic Substance into Respiratory Tract, Via Natural or Artificial Opening (ICD-10-PCS; 2017-03-31)
PROC: 0F798DZ Dilation of Common Bile Duct with Intraluminal Device, Via Natural or Artificial Opening Endoscopic (ICD-10-PCS; 2017-04-03 14:00)
PROC: 0DJ08ZZ Inspection of Upper Intestinal Tract, Via Natural or Artificial Opening Endoscopic (ICD-10-PCS; 2017-04-03 14:00)
PROC: BF43ZZZ Ultrasonography of Gallbladder and Bile Ducts (ICD-10-PCS; 2017-04-03 14:00)
PROC: 0FT44ZZ Resection of Gallbladder, Percutaneous Endoscopic Approach (ICD-10-PCS; principal; 2017-04-04 11:15)
DX: A41.51 Sepsis due to Escherichia coli [E. coli] (principal); K80.66 Calculus of gallbladder and bile duct with acute and chronic cholecystitis without obstruction; N17.9 Acute kidney failure, unspecified; D69.6 Thrombocytopenia, unspecified; Z68.41 Body mass index [BMI] 40.0-44.9, adult; K22.10 Ulcer of esophagus without bleeding; N30.00 Acute cystitis without hematuria; R65.20 Severe sepsis without septic shock; E66.01 Morbid (severe) obesity due to excess calories; E03.9 Hypothyroidism, unspecified; K44.9 Diaphragmatic hernia without obstruction or gangrene; K22.70 Barrett's esophagus without dysplasia; J45.30 Mild persistent asthma, uncomplicated; R09.02 Hypoxemia; E78.5 Hyperlipidemia, unspecified; E78.00 Pure hypercholesterolemia, unspecified; I34.0 Nonrheumatic mitral (valve) insufficiency; Z96.653 Presence of artificial knee joint, bilateral; Z87.891 Personal history of nicotine dependence; Z79.82 Long term (current) use of aspirin

== ENCOUNTER 2017-06-13 07:17 | Day surgery (SDC) | payer MEDICARE, OTHER ==
[2017-06-03 11:19] VITALS: BMI 39.4
[2017-06-13] MEDS ORDERED: Iohexol 240 (50 ml) ONE (07:47)
[2017-06-13 08:16] LABS: BASO # 0.15 K/mm3 (0.0-2.0); BASO % 2.2 % (0.0-3.0); EOS # 0.6 (0.0-0.7); EOS % 8.6 % (1.5-5.0); GRAN # 3.04 (1.4-6.5); GRAN % 45.4 % (50.0-68.0); HEMOGLOBIN 15.3 gm/dL (12.0-16.0); INR 0.98 (0.93-1.08); LYMPH # 2.2 (1.2-3.4); LYMPH % 32.5 % (22.0-35.0); MEAN CELL VOLUME 91.6 fL (80.0-105.0); MEAN CORPUSCULAR HEMOGLOBIN 31.2 pg (25.0-35.0); MEAN CORPUSCULAR HGB CONC 34.1 g/dl (31.0-37.0); MEAN PLATELET VOLUME 9.1 fl (7.0-11.0); MONO # 0.8 (0.1-0.6); MONO % 11.3 % (1.0-6.0); PARTIAL THROMBOPLASTIN TIME 28.1 Seconds (23.7-30.8); PLATELET COUNT 186 10^3/uL (120.0-450.0); PROTHROMBIN TIME 10.6 Seconds (9.9-11.8); RED CELL DISTRIBUTION WIDTH 13.9 % (11.5-14.5); WHITE BLOOD COUNT 6.7 10^3/ul (4.5-11.0)
[2017-06-13 08:18] LABS: ALB/GLOB RATIO 1.3 (1.1-1.8); ALBUMIN 4.1 g/dL (3.0-4.8); ALT/SGPT 27 U/L (7-56); AMYLASE 81 U/L (35-125); AST/SGOT 25 U/L (15-39); BLOOD UREA NITROGEN 20 mg/dL (7-21); CALCIUM 9.3 mg/dL (8.4-10.5); GAMMA GLUTAMYL TRANSPEPTIDASE 17 U/L (8-78); GFR AFRICAN-AMERICAN > 60; GFR NON-AFRICAN AMERICAN 53; LIPASE 118 U/L (23-300)
[2017-06-13] MEDS ORDERED: Indomethacin 50 MG Suppository PR ONE (08:34)
[2017-06-13] MEDS ORDERED: Midazolam 2 MG/2 ML VIAL ONE (08:37)
[2017-06-13] MEDS ORDERED: Etomidate 20 mg/10ml Inj IV ONE (08:38)
[2017-06-13] MEDS ORDERED: cefTRIAXone (Rocephin) 1 gm Inj ONE (09:01)
[2017-06-13] MEDS ORDERED: Neostigmine Methylsulfate 3mg/3ml Syringe IV ONE (09:06)
[2017-06-13] MEDS ORDERED: Lactated Ringer's 1,000 ML IV SCH (09:10)
[2017-06-13 10:43] VITALS: RESP 16
[2017-06-13 11:22] VITALS: BP 174/73; PULSE 53; TEMP 97.5; O2SAT 97
--- NOTE | 2017-06-13 13:48 | RAD ---
PROCEDURE: Fluoroscopy up to 1 hour HISTORY: ERCP COMPARISON: TECHNIQUE: Fluoroscopy was provided in the endoscopy suite. Seven images were submitted FINDINGS: The study shows opacification of the common duct with placement of a wire. No obvious filling defects IMPRESSION: As above
== END 2017-06-13 11:38 | disposition home or self-care (01) ==
LOC: ENDO 07:17
PROVIDERS: ATTEND Internal Medicine Gastroenterology
DX: K80.50 Calculus of bile duct without cholangitis or cholecystitis without obstruction (principal); K22.70 Barrett's esophagus without dysplasia; K22.10 Ulcer of esophagus without bleeding; K44.9 Diaphragmatic hernia without obstruction or gangrene; T18.3XXA Foreign body in small intestine, initial encounter; K29.50 Unspecified chronic gastritis without bleeding; K29.80 Duodenitis without bleeding
CPT/HCPCS: 36415; 43239; 43247; 43262; 43264; 80053; 82150; 82977; 83690; 85025; 85610; 85730; 88305; 88312; C1726; J0696; J2001; J2250; J2405; J2710; J3010; J7040; J7120; Q9966

== ENCOUNTER 2019-04-10 17:27 | Observation (INO) | payer MEDICARE, OTHER ==
--- NOTE | 2019-04-10 17:48 | ED PDOC ---
Arrival/HPI - General Chief Complaint: Shortness Of Breath Time Seen by Provider: 04/10/19 17:28 Historian: Patient - History of Present Illness Time/Duration: Prior to Arrival Symptom Onset: Sudden Symptom Course: Unchanged Severity Level: Moderate Activities at Onset: Rest Associated Symptoms (Text): 04/10/19 17:45 Patient reports hemoptysis beginning just prior to arrival. No hematemesis. She reports she has not been ill. No URI symptoms. No sore throat. No fever. No sputum production. She was not coughing prior to this. No chest or back pain. No abdominal pain. No GI bleed. No injury or trauma. She has never experienced this previously. She quit smoking 50 years ago. No dyspnea. No blood thinners. Past Medical History - Infectious Disease Hx of Infectious Diseases: None - Cardiac Hx Hypertension: Yes Hx Pacemaker: No - Pulmonary Hx Asthma: Yes - Endocrine/Metabolic Hx Hypothyroidism: Yes - Hematological/Oncological Hx Blood Transfusions: No Hx Blood Transfusion Reaction: No - Musculoskeletal/Rheumatological Hx Falls: No - Gastrointestinal Hx Gastritis: Yes Hx Gastroesophageal Reflux: Yes - Psychiatric Hx Emotional Abuse: No Hx Physical Abuse: No Hx Substance Use: No - Surgical History Hx Cataract Extraction: Yes Hx Cholecystectomy: Yes Hx Orthopedic Surgery: Yes (Right knee replacement) - Anesthesia Hx Anesthesia Reactions: No Hx Malignant Hyperthermia: No - Suicidal Assessment Feels Threatened In Home Enviroment: No Family/Social History - Physician Review Nursing Documentation Reviewed: Yes Family/Social History: Unknown Family HX Smoking Status: Former Smoker (Quit smoking 50 years ago) Hx Alcohol Use: Yes (SOCIAL) Hx Substance Use: No Allergies/Home Meds Allergies/Adverse Reactions: Allergies No Known Allergies Allergy (Verified 03/31/17 09:33) Home Medications: Home Meds Medication Instructions Recorded Confirmed Aspirin [Ecotrin] 81 mg PO DAILY 03/31/17 04/10/19 Calcium Carbonate [Oscal] 1 cap PO BID 03/31/17 04/10/19 Fluticasone/Salmeterol 250/50 1 puff INH BID 03/31/17 04/10/19 [Advair Diskus 250/50] Pravastatin Sodium [Pravachol] 40 mg PO HS 03/31/17 04/10/19 Levothyroxine [Synthroid] 100 mcg PO DAILY 06/03/17 04/10/19 Metoprolol Tartrate [Lopressor] 25 mg PO QPM 06/03/17 04/10/19 Omeprazole 40 mg PO DAILY 06/13/17 04/10/19 Ranitidine HCl [Zantac] 150 mg PO DAILY 06/13/17 04/10/19 Review of Systems - Physician Review All systems were reviewed & negative as marked: Yes - Review of Systems Constitutional: Normal Respiratory: Cough. absent: SOB, Sputum, Wheezing Cardiovascular: absent: Chest Pain, Palpitations, Syncope Gastrointestinal: absent: Abdominal Pain, Constipation, Diarrhea, Nausea, Vomiting, Hematochezia, Hematemesis, Anorexia Neurological: Normal Physical Exam Temperature: Afebrile Blood Pressure: Normal Pulse: Regular Respiratory Rate: Normal Appearance: Positive for: Well-Appearing, Non-Toxic, Comfortable, Other (Morbidly obese) Pain Distress: None Mental Status: Positive for: Alert and Oriented X 3 - Systems Exam Head: Present: Atraumatic, Normocephalic Pupils: Present: PERRL Extroacular Muscles: Present: EOMI Conjunctiva: Present: Normal Ears: Present: NORMAL TM, Normal Canal. No: Erythema, TM Bulging Mouth: Present: Moist Mucous Membranes Pharnyx: No: ERYTHEMA, EXUDATE, TONSILS ENLARGED Nose (Internal): Present: Normal Inspection, Other (No bleeding) Neck: Present: Normal Range of Motion Respiratory/Chest: Present: Clear to Auscultation, Good Air Exchange, Decreased Breath Sounds. No: Respiratory Distress, Accessory Muscle Use Cardiovascular: Present: Regular Rate and Rhythm, Normal S1, S2. No: Murmurs Abdomen: No: Tenderness, Distention, Peritoneal Signs, Rebound, Guarding Rectal: Present: Hemorrhoids, Normal Rectal Tone. No: Occult Blood, Rectal Tenderness, Gross Blood, Melena, Fissures, Nodule/Mass/Lesions Upper Extremity: Present: Normal Inspection. No: Cyanosis, Edema Lower Extremity: Present: Normal Inspection, Other (Bilateral total knee replacement scars). No: Edema Neurological: Present: GCS=15, CN II-XII Intact, Speech Normal, Motor Func Grossly Intact Skin: Present: Warm, Dry, Normal Color. No: Rashes Psychiatric: Present: Alert, Oriented x 3, Normal Insight, Normal Concentration Medical Decision Making ED Course and Treatment: 04/10/19 17:49 EKG shows normal sinus rhythm rate approximately [address] or T wave changes. 04/10/19 20:04 Patient has pneumonia on CT scan. Blood work is unremarkable. Patient is afebrile. She continues to cough and have hemoptysis. Rocephin and Zithromax have been given. Since she is continuing to have hemoptysis she will be admitted to the hospital. Discussed the case with Dr. Betancur who will admit to Dr. Spicer service. - RAD Interpretation Radiology Orders: 04/10/19 17:44 CHEST W/O CONTRAST [CT] Stat CT scan of the chest as read by the radiologist is positive for left upper lobe pneumonia. Instructor Modeling: Radiologist Disposition/Present on Arrival - Present on Arrival Any Indicators Present on Arrival: No History of DVT/PE: No History of Uncontrolled Diabetes: No Urinary Catheter: No History of Decub. Ulcer: No History Surgical Site Infection Following: None - Disposition Have Diagnosis and Disposition been Completed?: Yes Diagnosis: Hemoptysis, Pneumonia Disposition: HOSPITALIZED Disposition Time: 20:06 Patient Plan: Observation Patient Problems: Current Active Problems Problem Status Onset Hemoptysis Acute Pneumonia Acute Condition: GOOD
[2019-04-10 18:58] LABS: URINE BILIRUBIN NEGATIVE (NEGATIVE); URINE BLOOD NEGATIVE (NEGATIVE); URINE GLUCOSE (UA) NEGATIVE (NEGATIVE); URINE LEUKOCYTE ESTERASE NEGATIVE Leu/uL (NEGATIVE); URINE PROTEIN NEGATIVE mg/dL (<30 mg/dL); URINE UROBILINOGEN 0.2 E.U./dL (<1 E.U./dL)
[2019-04-10 18:59] LABS: BASO # 0.16 K/mm3 (0.0-2.0); BASO % 1.6 % (0.0-3.0); EOS # 0.3 (0.0-0.7); EOS % 3.4 % (1.5-5.0); HEMOGLOBIN 15.6 g/dL (12.0-16.0); LYMPH % 20.2 % (22.0-35.0); MEAN CELL VOLUME 93.4 fl (80.0-105.0); MEAN CORPUSCULAR HEMOGLOBIN 31.1 pg (25.0-35.0); MEAN CORPUSCULAR HGB CONC 33.3 g/dl (31.0-37.0); MEAN PLATELET VOLUME 9.4 fl (7.0-11.0); MONO % 9.7 % (1.0-6.0); RBC 5.01 10^6/uL (3.5-6.1); RED CELL DISTRIBUTION WIDTH 13.7 % (11.5-14.5); WHITE BLOOD COUNT 9.8 10^3/uL (4.5-11.0)
[2019-04-10 19:00] LABS: URINE APPEARANCE CLEAR (CLEAR); URINE COLOR YELLOW (YELLOW)
[2019-04-10 19:05] LABS: INR 0.97; PARTIAL THROMBOPLASTIN TIME 35.5 Seconds (26.9-38.3); PROTHROMBIN TIME 10.8 SECONDS (9.4-12.5)
[2019-04-10 19:12] LABS: ALB/GLOB RATIO 1.3 (1.1-1.8); ALBUMIN 4.2 g/dL (3.0-4.8); ALT/SGPT 17 U/L (7-56); AST/SGOT 36 U/L (14-36); BLOOD UREA NITROGEN 22 mg/dL (7-21); CALCIUM 9.1 mg/dL (8.4-10.5); GFR NON-AFRICAN AMERICAN 60
[2019-04-10 19:23] LABS: TROPONIN I < 0.01 ng/mL
[2019-04-10] MEDS ORDERED: cefTRIAXone 1 gm 1 GM/100 ML BAG IVPB STA (20:00)
[2019-04-10] MEDS ORDERED: Azithromycin 500MG/NS 250ml 500 MG/250 ML BAG IVPB STA (20:00)
[2019-04-10] MEDS ORDERED: DiphenhydrAMINE 50 mg/ml Inj IVP STA (21:42)
[2019-04-10] MEDS ORDERED: DiphenhydrAMINE 50 mg/ml Inj ONE (21:47)
--- NOTE | 2019-04-10 21:58 | CP.PCM.PN ---
Subjective - Date & Time of Evaluation Date of Evaluation: 04/10/19 Time of Evaluation: 21:57 - Subjective Subjective: Patient was seen at bedside. She is accompanied by her daughter. Has no complaints now. Earlier she received Benadryl for itching in right arm. States that she started to have itching in left upper arm proximal to Heparin lock site. Has some bumps in the area. Itching has stopped since she received Benadryl. Has no other complaints. Medical record was reviewed. This 83 year old white woman is admitted with sob, Hemoptysis ,PNA. Has PMH of HTN,Asthma, Hypothyroidism, obesity,GERD,Cataract, Cholecystectomy. Objective - Vital Signs/Intake and Output Vital Signs (last 24 hours): Temp Pulse Resp BP Pulse Ox 98.4 F 78 18 143/64 99 04/10/19 20:59 04/10/19 21:51 04/10/19 21:51 04/10/19 20:59 04/10/19 21:51 - Labs Labs: 04/10/19 18:50 04/10/19 18:50 PT 10.8 SECONDS (9.4-12.5) 04/10/19 18:50 INR 0.97 04/10/19 18:50 APTT 35.5 Seconds (26.9-38.3) 04/10/19 18:50 - Constitutional Appears: Well, No Acute Distress - Head Exam Head Exam: ATRAUMATIC, NORMAL INSPECTION, NORMOCEPHALIC Additional comments: Obese. - Eye Exam Pupil Exam: NORMAL ACCOMODATION - ENT Exam ENT Exam: Normal External Ear Exam - Neck Exam Neck Exam: Normal Inspection - Respiratory Exam Respiratory Exam: NORMAL BREATHING PATTERN - Cardiovascular Exam Cardiovascular Exam: absent: JVD - GI/Abdominal Exam GI & Abdominal Exam: absent: Distended - Rectal Exam Rectal Exam: Deferred - Exam Additional comments: Deferred. - Extremities Exam Extremities Exam: Normal Inspection - Back Exam Back Exam: NORMAL INSPECTION - Neurological Exam Neurological Exam: Alert, Awake, Oriented x3 - Psychiatric Exam Psychiatric exam: Normal Affect, Normal Mood - Skin Skin Exam: Normal Color Additional comments: No definite rashes noted in left proximal arm. Assessment and Plan - Assessment and Plan (Free Text) Assessment: Itching in left arm. ?Side effect of Zithromax? PNA Dyspnea HTN Asthma Hypothyroidism Obesity Plan: Benadryl as per order. Continue present management. Discussed with nurse. She would endorse to next shift nurse to inform PMD before the next dose of Zithrmax is due.
[2019-04-11 01:02] VITALS: BMI 39.9
[2019-04-11] MEDS: Levothyroxine 100 MCG TAB PO SCH (07:30)
--- NOTE | 2019-04-11 09:20 | CARD ---
APPROVED REPORT Date of service: 04/10/2019 EKG Measurement Heart [id number] <Conclusion> Normal sinus rhythm Normal ECG
[2019-04-11] MEDS: cefTRIAXone 1 gm 1 GM/100 ML BAG IVPB SCH (10:27)
--- NOTE | 2019-04-11 10:38 | CT ---
Date of service: 04/10/2019 PROCEDURE: CT Chest without contrast HISTORY: Hemoptysis COMPARISON: 04/01/2017 TECHNIQUE: Contiguous axial images were obtained through the chest without intravenous contrast enhancement. Sagittal and coronal reconstructions were performed. Radiation dose: Total exam DLP = 649.6 mGy-cm. This CT exam was performed using one or more of the following dose reduction techniques: Automated exposure control, adjustment of the mA and/or kV according to patient size, and/or use of iterative reconstruction technique. FINDINGS: LUNGS: The lungs are well inflated. There is multifocal patchy ground-glass attenuation in the left upper lobe. There is linear subsegmental atelectasis in the lower lobes. There is discoid atelectasis in the lingula. There are no endobronchial lesions. MEDIASTINUM: Unremarkable thoracic aorta. No aneurysm. Normal sized heart. Main pulmonary artery unremarkable. No vascular congestion. No lymphadenopathy. There are aortic atherosclerotic calcifications present. PLEURA: No pleural fluid. No pneumothorax. BONES: No fracture. No destructive lesion. There is diffuse bone demineralization and multilevel degenerative changes in the spine. UPPER ABDOMEN: Grossly unremarkable. OTHER FINDINGS: There is a moderate sliding hiatal. IMPRESSION: 1. Findings are most compatible with left upper lobe pneumonia. 2. Moderate sliding hiatal hernia. A preliminary report was provided by [facility].
--- NOTE | 2019-04-11 13:02 | US ---
HISTORY: Leg pain and swelling. Evaluate for DVT PHYSICIAN(S): Chau Argueta MD. TECHNIQUE: Duplex sonography and color-flow Doppler with graded compression were used to evaluate the deep venous systems of both lower extremities. FINDINGS: The exam is limited. The tibial veins are not well seen The visualized deep venous systems of both lower extremities are sonographically normal and compressible. Normal wave forms and augmentation are seen. There is no sonographic evidence for deep venous thrombosis in the visualized segments of both lower extremities. IMPRESSION: No sonographic evidence for deep venous thrombosis in the visualized segments of both lower extremities. Limited study.
--- NOTE | 2019-04-11 14:58 | HP ---
DATE OF EXAM: 04/11/2019 HISTORY OF PRESENT ILLNESS: This is an 83-year-old female who is coming in to the hospital with complaints of cough, congestion, hemoptysis. The patient is states that she had an episode of hemoptysis. She denies any chest pain or shortness of breath. No headaches or dizziness. She recently was traveling. She had a CAT scan done that preliminary shows a pneumonia. The patient was given IV antibiotics and admitted to the hospital. She says she feels well this morning. She had multiple episodes of hemoptysis in the hospital last night, but not any this morning. She has no fevers or chills. No abdominal pain or back pain or dysuria, frequency. No swelling of the legs. No pain in the legs as well. ALLERGIES: NO KNOWN DRUG ALLERGIES. HOME MEDICATIONS. She is on Advair, aspirin, omeprazole, calcium, pravastatin, ranitidine, metoprolol, levothyroxine. PAST MEDICAL HISTORY: Hypothyroidism, hypertension, dyslipidemia. PAST SURGICAL HISTORY: Cholecystectomy, right knee surgery, bilateral cataracts, cholecystectomy, nasal polyp polypectomy. FAMILY HISTORY: Noncontributory. SOCIAL HISTORY: She smoked, but quit about 40 years ago. She denies alcohol abuse or drug abuse. REVIEW OF SYSTEMS: All other review of symptoms are within normal limits except what was mentioned. PHYSICAL EXAMINATION: VITAL SIGNS: Temperature is 98.1, pulse of 70, blood pressure 147/70, respirations 20, O2 saturation 95%. Height is 5 feet 5 inches. Weight is 240 pounds. BMI is 39.9. GENERAL: The patient lying in bed, uncomfortable, and in no acute distress. HEENT: Atraumatic and normocephalic. Anicteric sclerae. Moist mucosa. [place] conjunctivae. No oral lesions. NECK: No JVD, anterior and posterior adenopathy, thyromegaly, or bruits. CARDIOVASCULAR: S1 and S2 regular. No murmur, rubs, or gallop. LUNGS: Clear to auscultation bilaterally. No wheezes, rales, or rhonchi. ABDOMEN: Bowel sounds are positive. Soft, nontender and nondistended. No hepatosplenomegaly. No rebound and no guarding EXTREMITIES: No cyanosis, clubbing, or edema. NEUROLOGIC: No facial asymmetry. Tongue is midline. No vulva deviation. Power is 5/5 upper extremity and lower extremity. Sensation intact in upper extremity and lower extremity. PSYCHIATRIC: She is awake, alert and oriented x3. No anxiety or depression. She has normal affect. GENITOURINARY: No CVA tenderness. VASCULAR: 2+ pulses in the carotid pulses and pedal pulses. SKIN: No erythema or nodules SPINE: Shows normal curvature. LABORATORY DATA: White count of 9.8, hemoglobin 15.6. INR is 0.97. Chemistry shows sodium 140, potassium is 4.2, creatinine 0.9, troponin 0.01. Urine, ketones are negative. Blood is negative. EKG shows sinus rhythm with 75, QTc is 466. ASSESSMENT: 1. Hemoptysis. 2. Community-acquired pneumonia. 3. Hypothyroidism. PLAN: The patient is going to be admitted to the hospital. She is going to be on IV antibiotics. I have asked from pulmonary to evaluate the patient. I spoke to the patient's daughter at the bedside. They are anxious to go home. She is willing to stay another day in the hospital. She is on Rocephin for antibiotic. She is also on Synthroid for hypothyroidism. She is on metoprolol, this be continued. I did speak to from pulmonary regarding the patient. The CT that I reviewed showed a left upper lobe pneumonia and a large hiatal hernia. Anshu Betancur MD
--- NOTE | 2019-04-11 15:55 | CON ---
PULMONARY CONSULTATION DATE OF CONSULTATION: 04/11/2019 HISTORY OF PRESENT ILLNESS: The patient is an 83-year-old woman who complains of hemoptysis. She states starting yesterday she had five episodes of coughing up blood. She was unable to give a full history, but it appears that it was bright red blood and not associated with any phlegm. There were no associated respiratory symptoms. At the time of the coughing, she may have had some shortness of breath, but she does have a history of asthma, which is being treated with Advair as an outpatient. She denies fever, chills or significant cough. She states that the hemoptysis seems to have come out of nowhere. There is no additional history obtained at this time. The patient recently was in [place] and traveled via air coming back home just 3 days ago. PAST MEDICAL HISTORY: As described above. History of asthma since childhood, on Advair. History of hypothyroidism and hypertension. She had an episode of gastritis while in [place]. FAMILY HISTORY: Unknown. SOCIAL HISTORY: Former smoker, discontinued many years ago. Social drinker. No occupational or travel history. HOME MEDICATIONS: Advair, Pravachol, Synthroid, Lopressor, omeprazole, and Zantac. She has also been on aspirin 81 mcg daily. ALLERGIES: NO KNOWN ALLERGIES. REVIEW OF SYSTEMS: Has been discussed at length with the patient and her daughter. There are no other abnormalities noted other than described above. All other systems negative. PHYSICAL EXAMINATION: VITAL SIGNS: She is afebrile with temperature 98.6, pulse 80, respiratory rate 18, blood pressure 140/70 HEENT: Normocephalic, atraumatic. NECK: Supple. No jugular venous distention, no bruit, no mass. HEART: Regular rhythm, S1, S2 without murmur, gallop, or rub. LUNGS: No wheezing, rhonchi, or rales appreciated. ABDOMEN: Soft. Bowel sounds normoactive without mass, guarding, rebound or organomegaly. : Within normal limits EXTREMITIES: No clubbing, cyanosis, or edema. There is no evidence of Homans' sign. SKIN: No rash or excoriation. NEUROLOGIC EXAM: Mental status is abnormal, but no focal findings are noted. IMAGING DATA: CAT scan of the chest was done without a plain chest x-ray. It was not yet read. It appears to me that there might be some minor infiltrates, but I would like to discuss this with Radiology. LABORATORY DATA: White count of 9000, hemoglobin of 15.6. PT 10, INR 0.97. Chemistries: Sodium 140, potassium 4.2, chloride 105. Troponin normal. Urine is normal. CLINICAL IMPRESSION: 1. Hemoptysis. 2. Recent air travel. 3. Asthma. 4. Cannot exclude underlying pneumonitis. PLAN: The patient has already received Zithromax and ceftriaxone appropriate antibiotic therapy. Awaiting the official CAT scan reading regarding pneumonitis. The patient should have a duplex lower extremity evaluation to rule out DVT. There is no tenderness, but the patient did travel recently and so a lung scan to rule out pulmonary embolism is in order. The patient should be on her Advair at this time, although clinically there is no evidence of wheezing. Her baseline medications are essential. We will await the official CAT scan readings, await the duplex, lower extremity vein evaluation and a lung inhalation perfusion scan. Continue antibiotics and bronchodilators. We will follow closely with you and decide on the need for further intervention. Thank you for the opportunity to care for this gerardo patient. Iraj Degroot MD MTDD
--- NOTE | 2019-04-11 15:57 | NM ---
Date of service: 04/11/2019 COMPARISON: Chest CT without contrast 04/10/2019. TECHNIQUE: 30.0 mCi technetium 99-m DTPA aerosol. 2.6 mCI technetium 99-m MAA administered intravenously. FINDINGS: VENTILATION COMPONENT: Diminished activity right upper lobe or possibly superior segment right lower lobe. Limited diminished uptake left apex. PERFUSION COMPONENT: Limited perfusion defect left apex. IMPRESSION: Lowprobability ventilation perfusion scan for pulmonary embolism.
[2019-04-11] MEDS ORDERED: Fluticasone-Salmeterol 250-50mcg Diskus IH SCH (22:00)
[2019-04-11] MEDS: Arformoterol 15 mcg/2 ml Inh Sol IH SCH (22:15)
[2019-04-11] MEDS: Budesonide 0.5 mg/2 ml Inhal Susp UD IH SCH (22:15)
[2019-04-12] MEDS: cefTRIAXone 1 gm 1 GM/100 ML BAG IVPB SCH (06:14)
[2019-04-12] MEDS: Levothyroxine 100 MCG TAB PO SCH (06:15)
[2019-04-12] MEDS: Arformoterol 15 mcg/2 ml Inh Sol IH SCH (07:50)
[2019-04-12] MEDS: Budesonide 0.5 mg/2 ml Inhal Susp UD IH SCH (07:51)
[2019-04-12 07:57] VITALS: BP 126/76; PULSE 68; RESP 18; TEMP 98.2; O2SAT 93
--- NOTE | 2019-04-13 03:30 | DS ---
HISTORY OF PRESENT ILLNESS: This is an 83-year-old female who was admitted to the hospital because of hemoptysis. She was found to have an infiltrate on her CT of the chest, it was felt that this is most likely bronchitis causing the hemoptysis. The patient was placed on IV antibiotics and had improvement in her symptoms. She has not had any hemoptysis in the last 24 hours. She was seen by Pulmonary and then cleared for discharge. The patient also had a V/Q scan that showed low probability. Lower extremity Dopplers were done and this was also negative for DVT. The patient currently feels well. She was given IV antibiotics this morning and is going to be discharged home. She has no headaches, no dizziness, no nausea, no vomiting. No chest pain, no shortness of breath. PHYSICAL EXAMINATION: VITAL SIGNS: Temperature is 98.2, pulse is 68, blood pressure 126/76, respirations 18, O2 saturation 93%. GENERAL: The patient is lying in bed, flat, comfortable. HEENT: No oral lesion. Anicteric sclerae. Moist mucosa. NECK: No JVD, adenopathy, or thyromegaly. CARDIOVASCULAR: S1 and S2, regular. No murmurs, rubs, or gallops. LUNGS: Clear to auscultation bilaterally. No wheeze, rales, or rhonchi. ABDOMEN: Bowel sounds are positive, soft, nontender and nondistended. EXTREMITIES: No cyanosis, clubbing or edema. ASSESSMENT: 1. Hemoptysis. 2. Bronchitis. 3. Community acquired pneumonia. 4. Hypothyroidism. PLAN The patient is on Rocephin and Zithromax, she received that antibiotic this morning. She is going to be discharged on Augmentin orally and Zithromax to finish her treatment. She is on a regular diet. I did speak to the patient's daughter at the bedside to give an update on the patient's diagnosis and plan of care. She will follow up with Dr. Spicer, her primary care doctor in 1-2 weeks. Anshu Betancur MD
== END 2019-04-12 11:24 | disposition home or self-care (01) ==
LOC: ED 17:27 → ERH 20:06 → 5RNO 22:14
PROVIDERS: ADMIT Internal Medicine; ATTEND Internal Medicine
DX: J18.9 Pneumonia, unspecified organism (principal); R04.2 Hemoptysis; E03.9 Hypothyroidism, unspecified; E66.9 Obesity, unspecified; E78.5 Hyperlipidemia, unspecified; I10 Essential (primary) hypertension; J45.909 Unspecified asthma, uncomplicated; K21.9 Gastro-esophageal reflux disease without esophagitis; Z79.82 Long term (current) use of aspirin; Z79.890 Hormone replacement therapy; Z87.891 Personal history of nicotine dependence; Z90.49 Acquired absence of other specified parts of digestive tract; Z96.651 Presence of right artificial knee joint; Z68.39 Body mass index [BMI] 39.0-39.9, adult
CPT/HCPCS: 71250; 78582; 80053; 81003; 82550; 83615; 83735; 84484; 85025; 85610; 85730; 87040; 93005; 93970; 94640; 96365; 96367; 96375; 96376; 99285; G0378; J0456; J0696; J1200